=== PATIENT | female | born 1940 | race Caucasian/White ===

== ENCOUNTER 2017-02-01 13:37 | Emergency (ER) | payer MEDICARE, OTHER ==
[2017-02-01] MEDS ORDERED: CYCLOBENZAPRINE HCL 10 MG TABLET PO ONE (14:05)
[2017-02-01] MEDS ORDERED: ACETAMINOPHEN 325 MG TABLET PO ONE (14:05)
[2017-02-01] MEDS ORDERED: ACETAMINOPHEN 325 MG TABLET ONE (14:09)
[2017-02-01] MEDS ORDERED: CYCLOBENZAPRINE HCL 10 MG TABLET ONE (14:09)
[2017-02-01 14:11] VITALS: BP 129/88
--- NOTE | 2017-02-01 14:16 | ERNOTE ---
Back Pain ER HPI Time Seen by Provider: 02/01/17 13:48 Source: patient Exam Limitations: no limitations Immunizations: IMMUNIZATION HX Immunizations Up to Date Yes History of Influenza Vaccine Yes Hx Pneumococcal Vaccination Yes Allergies/Adverse Reactions: Allergies codeine [Codeine] Allergy (Intermediate, Verified 04/21/16 15:59) Itching penicillin G Allergy (Intermediate, Verified 04/21/16 15:59) Hives Home Medications: HOME MEDICATIONS Alendronate Sodium [Fosamax] 70 mg PO Q7D #0 04/24/14 [Last Taken Unknown] Amitriptyline HCl [Elavil] 20 mg PO HS #0 04/24/14 [Last Taken Unknown] Aspirin [Aspirin Chewable] 81 mg PO DAILY #0 04/24/14 [Last Taken Unknown] Calcium Carbonate/Vitamin D3 [Calcarb 600 With Vitamin D] 1 tab PO BIDWM #0 tablet 04/24/14 [Last Taken Unknown] Cinnamon Bark/Chromium Picolin [Cinnamon Plus Chromium Capsule] 1 each PO BID # 0 04/24/14 [Last Taken Unknown] Gabapentin [Neurontin] 600 mg PO ACHS #0 04/24/14 [Last Taken Unknown] Hydrochlorothiazide 50 mg PO DAILY #0 04/24/14 [Last Taken Unknown] Levothyroxine Sodium [Synthroid] 150 mcg PO DAILY #0 04/24/14 [Last Taken Unknown] Losartan Potassium [Cozaar] 100 mg PO DAILY #0 04/24/14 [Last Taken Unknown] Magnesium Oxide [Magnesium] 400 mg PO BID #0 04/24/14 [Last Taken Unknown] Potassium Chloride [K-Dur] 20 meq PO DAILY #0 04/24/14 [Last Taken Unknown] Simvastatin [Zocor] 10 mg PO HS #0 04/24/14 [Last Taken Unknown] Vitamin E Acetate [Vitamin E] 800 unit PO DAILY #0 04/24/14 [Last Taken Unknown ] metFORMIN HCL [Glucophage] 850 mg PO TID #0 04/24/14 [Last Taken Unknown] Naproxen Sodium [Aleve] 220 mg PO BID 04/21/16 [Last Taken Unknown] Sulfamethoxazole/Trimethoprim [Bactrim Ds] 1 tab PO BID #20 tab 04/21/16 [Last Taken Unknown] Cyclobenzaprine HCl [Flexeril] 10 mg PO TID PRN #30 tab 02/01/17 [Last Taken Unknown] Narrative: Patient complaints about pain in the back of her right thigh for about four days now, occasional numbness in that leg as well. When asked about back pain she admits to back pain for unkown duration, denies any recent falls or injuries. She had a fall a few years ago and had right sided sciatica after that for a while. She saw her PCP three days ago for skin infection (possibly infected bites?) was started on an antibiotic, did not address the leg pain at that time. Date (Duration): 01/28/17 Review of Systems - Review of Systems Constitutional: Present: See HPI, malaise. Absent: fever ENT: Absent: sore throat Respiratory: Absent: shortness of breath Cardiology: Absent: chest pain Gastrointestinal/Abdominal: Absent: nausea, vomiting, abdominal pain Genitourinary: Present: no symptoms reported Musculoskeletal: Present: See HPI Neurological: Present: See HPI, weakness - no focal, numbness - Patient's Past Medical History Patient History - Medical: Diabetes Type 2, Hypothyroidism Patient History - Cardiac/Respiratory: CHF, Hypertension, Hyperlipidemia Patient History - Cancer: No Hx of Cancer Patient History - Surgical Procedures: Cholecystectomy, Total Knee Replacement, Other, Orthopedic Patient History - Other: None - Family History Father Family History - Medical: , History Unknown Mother Family History - Medical: Family History - Cardiac/Respiratory: Hypertension - Social History Living Situations: home Abuse History: No History of abuse Psych History: No pertinent hx Smoking Status: Never smoker Have you smoked in the past 12 months: No Do you dip or chew tobacco: No Patient requests Smoking Cessation Consult: No Initiate information on Smoking Cessation: No Alcohol Use: none Drug Use: none - Immunizations Immunizations Up to Date: Yes Hx Pneumococcal Vaccination: Yes History of Influenza Vaccine: Yes Physical Exam - Physical Exam General Appearance: Present: wd/wn, alert, no apparent distress, obese Respiratory: Present: no respiratory distress, normal breath sounds, lungs clear Cardiovascular/Chest: Present: regular rate, rhythm, no murmur Back Exam: Present: normal inspection, other - tender to lower lumbar spine and paraspinal Extremity Exam: Present: normal inspection, non-tender, other - pain on right straight leg raise Neurological Exam: Present: alert, oriented, normal mood/affect, no motor/ sensory deficits Skin Exam: Present: normal color, warm/dry ED Progress - Vital Signs Patient's Vital Signs:: I have reviewed the patient's vital signs. Vital Signs: Vital Signs 02/01/17 13:48 Temperature 36.5 C Pulse Rate 98 Respiratory 18 Rate Blood Pressure 129/88 O2 Sat by Pulse 94 Oximetry Departure Clinical Impression: Sciatica of right side - Departure Disposition: Home self-care Condition: Good Instructions: Sciatica, [id number] Additional Instructions: take tylenol(650mg) every four hours in addition to the aleve you are taking twice a day call Janis tomorrow for follow up Referrals: Janis Mccall, BEHAVIOR ANALYST [Primary Care Provider] - Prescriptions: Cyclobenzaprine HCl [Flexeril] 10 mg PO TID PRN #30 tab PRN Reason: MUSCLE SPASMS
--- OUTSIDE RECORDS SUMMARY | 2017-02-01 14:16 | XMS REPORT | Continuity of Care Document ---
:1940 Author Organization [facility] ([facility]) Address [address] [place] [address] Phone [phone] Care Team Providers Name Role Phone Janis Mccall Primary Care Provider [phone] Source Comments This disclosure is being made pursuant to the Care Everywhere program, applicable federal and state laws, and may not contain all informaitonavailable regarding this patient.[facility] ([facility]) Active Allergies and Adverse Reactions Allergen Noted Date Severity Reactions Comments Codeine 03/07/2012 Rash Penicillins 03/07/2012 Rash Current Medications Prescription Sig. Disp. Refills Start Date End Date Status [id number] Take 400 mg by mouth Active PO 2 times daily. METFORMIN HCL (METFORMIN Take 850 mg by mouth Active PO) 3 times daily. potassium chloride 10 Take 20 mEq by mouth Active mEq XR capsule daily. Indications: HYPOKALEMIA PREVENTION levothyroxine 150 mcg Take 150 mcg by mouth Active tablet daily. Indications: HYPOTHYROIDISM simvastatin 10 mg tablet Take 10 mg by mouth Active every evening. Indications: ARTERIOSCLEROTIC VASCULAR DISEASE gabapentin 300 mg tablet Take 600 mg by mouth Active 4 times daily. Indications: NEUROPATHIC PAIN vitamin E 400 unit Take 400 Units by Active capsule mouth daily. Indications: VITAMIN E DEFICIENCY CALCIUM Take by mouth. Active CARBONATE/VITAMIN D3 (CALCIUM + D PO) hydrochlorothiazide 25 Take 50 mg by mouth Active mg tablet daily. amitriptyline 10 mg Take 10 mg by mouth Active tablet at bedtime. aspirin 81 mg EC tablet Take 81 mg by mouth Active daily. Active Problems Problem Noted Date Status post revision of total knee replacement 06/18/2014 Surgical aftercare, musculoskeletal system 06/18/2014 Postoperative anemia due to acute blood loss 04/20/2014 High body mass index 04/19/2014 Morbid obesity with BMI of 45.0-49.9, adult 04/19/2014 Pre-op evaluation 04/12/2014 Diabetes mellitus type 2, controlled 03/02/2014 HTN (hypertension) 03/02/2014 Hypothyroidism 03/02/2014 Diabetic neuropathy, type II diabetes mellitus 03/02/2014 Numbness and tingling in left hand 03/07/2012 Resolved Problems Problem Noted Date Resolved Date History of knee replacement, total 06/06/2014 06/18/2014 Left knee pain 03/02/2014 06/18/2014 Mechanical loosening of internal left knee prosthetic joint 03/02/20142013 Transient ischemic attack 03/07/2012 03/08/2012 Most Recent Encounters Date Type Specialty Providers Description 11/26/2016 Hospital Encounter Radiology Luis Alfredo Agosto, Dx: Aftercare following MD surgery of the musculoskeletal system 11/26/2016 Office Visit Orthopaedic Juan David Smith Dx: Aftercare following MD surgery of the musculoskeletal system (Primary Dx) Immunizations Name Dates Previously Given Next Due Influenza, unspecified 08/19/2011 Pneumococcal, unspecified 08/19/2011 Social History Tobacco Use Types Packs/Day Years Used Date Never Smoker Smokeless Tobacco: Never Used Tobacco Cessation:Counseling Given: Yes Comments: Alcohol Use Drinks/Week oz/Week Comments No Last Filed Vital Signs Vital Sign Reading Time Taken Blood Pressure 100/57 06/06/2014 9:36 AM CDT Pulse 127 04/21/2014 4:00 PM CDT Temperature 36.4 C (97.5 F) 04/21/2014 4:00 PM CDT Respiratory Rate 16 04/21/2014 4:00 PM CDT Height 1.676 m (5' 5.98") 11/26/2016 11:04 AM CDT Weight 141.8 kg (312 lb 9.8 oz) 11/26/2016 11:04 AM CDT Body Mass Index 50.48 11/26/2016 11:04 AM CDT Oxygen Saturation 94% 04/21/2014 4:00 PM CDT Plan of Care Date Type Specialty Providers Description 06/03/2017 Appointment Orthopaedic Juan David Smith MD Chief Comp: Patient [address] [place] [address] [phone] (Fax) Health Maintenance Due Date Last Done Comments Hepatitis B Vaccine (1 of 3 - Primary 1940 Series) Tdap Vaccine 1953 DIABETIC: Microalbumin 1960 Td Vaccine 1960 Mammogram 1982 Colonoscopy 08/21/1992 Zoster Vaccine 2002 Osteoporosis Screening (DXA Bone Density) 2007 Pneumococcal Vaccine (1 of 2 - PCV13) 2007 DIABETIC: Cholesterol 03/08/2013 03/08/2012 Diabetic: Hdl 03/08/2013 03/08/2012 Diabetic: Ldl 03/08/2013 03/08/2012 DIABETIC: Triglycerides 03/08/2013 03/08/2012 DIABETIC: Foot Exam 02/14/2014 DIABETIC: Retinal Eye Exam 02/14/2014 DIABETIC: Hemoglobin A1C 08/17/2014 02/14/2014, 03/08/2012 Influenza Vaccine: Seasonal (Season Ended) 2017 08/19/2011 Results from Last 3 Months LEFT KNEE AP, LATERAL& MERCHANT (11/26/2016 10:56 AM) Impressions Findings / Impression: Postsurgical changes of left constrained total knee arthroplasty in grossly stable alignment without interval hardware complication. Previously noted posterior lateral migration of the tibial stem is unchanged when compared to prior study. Heterotopic ossification noted posterior to the femur. Neutral patellar tracking bilaterally.. Narrative Procedure: LEFT KNEE AP, LATERAL & MERCHANT Clinical Indication: Left total knee arthroplasty Comparison: 06/02/2016 Procedure Note Adin, Incoming Imaging Results - ThuNov 26, 2016 5:07 PM CDT Procedure: LEFT KNEE AP, LATERAL & MERCHANT Clinical Indication: Left total knee arthroplasty Comparison: 06/02/2016 IMPRESSION Findings / Impression: Postsurgical changes of left constrained total knee arthroplasty in grossly stable alignment without interval hardware complication. Previously noted posterior lateral migration of the tibial stem is unchanged when compared to prior study. Heterotopic ossification noted posterior to the femur. Neutral patellar tracking bilaterally..
== END 2017-02-01 14:15 | disposition home or self-care (01) ==
LOC: ER 13:37
DX: M54.31 Sciatica, right side (principal)

== ENCOUNTER 2019-06-09 12:22 | Observation (INO) ==
[2019-06-09 12:41] LABS: Hematocrit 38.5 % (37.0-47.0); Hemoglobin 12.4 gm/dL (12.5-16.0); Mean Cell Volume 101.3 fl (78-100); Mean Corpuscular Hemoglobin 32.6 pg (27-31); Mean Corpuscular Hgb Conc 32.2 g/dl (32-36); Mean Platelet Volume 10.9 fl (8-12.5); Neutrophil # 5.2 K/mm3 (1.3-6.0); Neutrophil % 68.5 % (42-75.0); Platelet Count 171 K/mm3 (150-450); Red Cell Distribution Width 14.5 % (11.5-14.0); White Blood Count 7.6 K/mm3 (4.0-10.5)
--- NOTE | 2019-06-09 12:43 | ERNOTE ---
Trauma/Assault HPI - General Stated Complaint: fall Time Seen by Provider: 06/09/19 12:22 Source: patient Exam Limitations: no limitations - Immun/Allergies/Home Medications Immunizations: IMMUNIZATION HX Immunizations Up to Date Yes History of Influenza Vaccine Yes Hx Pneumococcal Vaccination Yes Allergies/Adverse Reactions: Allergies penicillin G Allergy (Mild, Verified 06/09/19 12:34) Hives codeine [Codeine] Adverse Reaction (Mild, Verified 06/09/19 12:34) Itching Home Medications: HOME MEDICATIONS Alendronate Sodium [Fosamax] 70 mg PO Q7D #0 04/24/14 [Last Taken 02/16/17] Calcium Carbonate/Vitamin D3 [Calcarb 600 With Vitamin D] 1 tab PO BIDWM #0 tab 04/24/14 [Last Taken 02/18/17] Potassium Chloride [K-Dur] 20 meq PO DAILY #0 04/24/14 [Last Taken 02/18/17] Simvastatin [Zocor] 10 mg PO HS #0 04/24/14 [Last Taken 02/18/17] metFORMIN HCL [Glucophage] 850 mg PO TID #0 04/24/14 [Last Taken 02/18/17] Naproxen Sodium [Aleve] 440 mg PO BID 04/21/16 [Last Taken 02/19/17] Vitamin E Acetate [Vitamin E] 1,200 unit PO DAILY 02/19/17 [Last Taken 02/18/17] B complex with [id number]-Yy tab PO 04/30/18 [Last Taken Unknown] amitriptyline 10 mg tablet 20 mg PO HS tab 04/30/18 [Last Taken Unknown] atenolol 50 mg tablet 50 mg PO DAILY 04/30/18 [Last Taken Unknown] gabapentin 300 mg capsule 600 mg PO QID cap 04/30/18 [Last Taken Unknown] hydrochlorothiazide 50 mg tablet 50 mg PO DAILY 04/30/18 [Last Taken Unknown] losartan 100 mg tablet 100 mg PO DAILY 04/30/18 [Last Taken Unknown] warfarin 2 mg tablet 2 mg PO DAILY 04/30/18 [Last Taken Unknown] Nitrofurantoin/Nitrofuran Mac [Macrobid] 100 mg PO Q12H #10 cap 06/09/19 [Last Taken Unknown] - History of Present Illness Narrative: Patient states that she was coming back from taking her to a doctors appointment and as she was opening the front door she fainted, fell back and hit her head on the sidewalk. She complains mainly of pain in the back of her head, doesn't remember any symptoms prior to passing out, denies current chest pain, no shortness of breath, states that she felt dizzy when sitting up for EMS Location Occurred: Reports: home Pain Location: Reports: head Method of Injury: Reports: fall Severity: moderate Modifying Factors - (Worsens): Reports: movement Associated Symptoms - Trauma: Reports: headache, dizziness. Denies: confusion, vision changes, chest pain, shortness of breath, nausea, vomiting Review of Systems - Review of Systems Constitutional: Absent: recent illness, fever EYE: Absent: vision changes ENT: Absent: nose congestion, sore throat Respiratory: Absent: shortness of breath Cardiology: Absent: chest pain Gastrointestinal/Abdominal: Absent: nausea Genitourinary: Present: no symptoms reported Musculoskeletal: Absent: back pain Neurological: Present: headache, dizziness/light-headedness Medical History (Last Reviewed 06/09/19 @ 13:14 by Vikki Cai MD) Atrial fibrillation Uses hearing aid Acquired hammer toe Bunion Diabetes mellitus, type II Onset Date: ~1989 Hyperlipidemia Hypertension Hypothyroidism Nail disease Onset Date: ~09/04/12 Neuropathy Onset Date: Unknown Plantar fascial fibromatosis Onset Date: ~09/09/12 Xerosis of skin Onset Date: ~09/04/12 feet Surgical History: Surgical History (Last Reviewed 06/09/19 @ 13:14 by Vikki Cai MD) History of Fatty Tumor Removal Onset Date: ~1980 History of YAG laser capsulotomy of lens Onset Date: ~03/2005 Right 04/2006 Left History of adenoidectomy Onset Date: Unknown History of carpal tunnel release Onset Date: ~1994 Right History of cataract Onset Date: ~2000 Right 06/2001 Left 07/2001 History of cholecystectomy Onset Date: ~1982 History of colonoscopy Onset Date: ~01/14/12 WNL-Dr. Neri History of flexible sigmoidoscopy Onset Date: ~1998 Meyer-infrared coagulation of hemorrhoids done 04/1999 and 07/1999 History of knee replacement Onset Date: ~2003 Right 12/2003 Dr. Jones Left 2004 Dr. Chacon History of tonsillectomy Onset Date: Unknown Family History: Family History (Last Reviewed 06/09/19 @ 14:49 by Marshall Garcia RN) Brother Alive and well Sister Alive and well Father , age 89-natural causes Paralysis Mother , age 82 Cancer Esophageal CA Sister , age 63 Epilepsy Social History: (Last Reviewed 06/09/19 @ 14:49 by Marshall Garcia RN) Social History: Marital status: household members: spouse current occupational status: retired Highest education level completed: high school graduate Service: No Tobacco: Smoking Status: Never smoker Alcohol: alcohol intake: never Substance Use: substance use type: does not use Dietary Habits: caffeine: Yes Detailed Trauma Exam Best Eye Response ([place]): (4) open spontaneously Best Verbal Response (Gabriel): (5) oriented Best Motor Response (Gabriel): (6) obeys commands [place] Total: 15 General Appearance: Present: alert, no acute distress, anxious Head Injury: Present: tenderness - occipital. 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 inspection Chest/Respiratory Exam: Present: nml inspection, chest non-tender, breath sounds nml Cardiovascular Exam: Present: regular rate, rhythm, no murmur Back Exam: Present: normal inspection, no CVA tenderness, no vertebral tenderness Abdominal Exam: Present: soft, non-tender, no distention Skin Exam: Present: normal color, warm/dry RU Extremity: Present: normal inspection, normal range of motion, non-tender, no edema RHONDA Extremity: Present: normal inspection, normal range of motion, non-tender, no edema RL Extremity: Present: normal inspection, normal range of motion, non-tender, no edema LL Extremity: Present: normal inspection, normal range of motion, non-tender, no edema - C-Spine cleared by: Neg C-spine CT & exam - Long Board: Back visualized Progress - Results and Orders Patient's Lab Results:: I have reviewed the patient's lab results. - Vital Signs Patient's Vital Signs:: I have reviewed the patient's vital signs. Vital Signs: Vital Signs 06/09/19 12:23 Temperature 36.3 C Pulse Rate 69 Respiratory Rate 16 Blood Pressure 157/56 H O2 Sat by Pulse Oximetry 96 - EKG EKG #1 EKG: atrial fibrillation, nonspecific ST T wave changes EKG read: Interp. by me - X-Ray X-Ray #1 X-Ray: chest - hypoventilatory changes, cardiomegaly, venous congestion Interpretation: Reviewed by me - CT/Ultrasound CT/Ultrasound Narrative: CT head: IMPRESSION: 1. No acute intracranial hemorrhage or mass effect. 2. Right occipital region scalp hematoma. 3. Trace amount of fluid within the right maxillary sinus. This is most likely incidental sinus disease, but correlate clinically for right facial bone injury. 4. Additional comments as above. CT C-spine: IMPRESSION: 1. No evidence of acute cervical spine fracture. 2. Evaluation is somewhat limited in regards to the lower cervical spine levels due to patient's body habitus as discussed above. 3. Multilevel cervical spine degenerative spondyloarthropathy as above. 4. Incidental right thyroid lobe nodule. Consider follow-up by thyroid ultrasound on a routine basis. - Progress/Reassessment Chief Complaint: Fall Progress Note-Subjective: 06/09/19 12:30 when sitting up in bed patient complains of dizziness and the room spinning, slight blood pressure drop, nystagmus to the left 06/09/19 14:[address] results, patient still has headache and feel intermittently dizzy 06/09/19 15:07 discussed test results with patient, still has headache, dizzy with movement, discussed possible admission for syncope and concussion, patient would like to go home as she feels she needs to take care of her 06/09/19 15:20 patient tried to get dressed, very difficult to get around, dizzy and weak, would like to get admitted for obs now 06/09/19 15:25 discussed with анна Amador to admit for obs Departure Clinical Impression: Syncope and collapse Concussion Qualifiers: Encounter type: initial encounter Loss of consciousness presence/duration: with LOC of unspecified duration Qualified Code(s): S06.0X9A - Concussion with loss of consciousness of unspecified duration, initial encounter UTI (urinary tract infection) Qualifiers: Urinary tract infection type: acute cystitis Hematuria presence: without hematuria Qualified Code(s): N30.00 - Acute cystitis without hematuria - Departure Disposition: Home self-care Condition: Stable Instructions: Concussion, Adult, [id number], Urinary Tract Infection, Adult, [id number], Syncope, [id number] Additional Instructions: take all your medications as prescribed move around slowly take tylenol as needed for pain Referrals: Fany Waldron DO [Primary Care Provider] - Prescriptions: Nitrofurantoin/Nitrofuran Mac [Macrobid] 100 mg PO Q12H #10 cap Transmission Status: Pending to [facility], [place], [place] Critical Care Time - Critical Care Critical Time Spent:: No
[2019-06-09 12:54] LABS: Prothrombin Time (Patient) 31.5 Seconds (9.1-10.7)
[2019-06-09 12:58] LABS: INR 3.33 INR (0.92-1.08)
[2019-06-09 13:00] LABS: ALT 8 U/L (19-67); AST 20 U/L (0-48); Albumin * 3.8 gm/dl (3.4-5.0); Alkaline Phosphatase * 88 U/L (50-170); Anion Gap 13.7 mmol/L (6.8-13.8); BUN/Creatinine Ratio 19.3 (9.0-21.6); Bilirubin, Total 0.6 mg/dL (0.0-1.1); Blood Urea Nitrogen 23 mg/dL (3-23); Ca. Corrected For Albumin 8.7 mg/dL (8.4-10.2); Calcium * 8.9 mg/dL (7.9-10.9); Carbon Dioxide 28.6 mmol/L (24-32.6); Chloride 105 mmol/L (97-106); Glucose * 105 mg/dL (70-110); Potassium 4.3 mmol/L (3.4-4.6); Sodium 143 mmol/L (132-142); Total Protein 7.1 gm/dL (6.2-8.2)
[2019-06-09] MEDS ORDERED: ACETAMINOPHEN 325 MG TABLET PO ONE (14:00)
[2019-06-09 14:19] LABS: Urine Bilirubin Negative (NEGATIVE); Urine Blood Negative /ul (NEGATIVE); Urine Ketone Negative (NEGATIVE); Urine Nitrite Negative (NEGATIVE); Urine Protein Negative (NEGATIVE); Urine Urobilinogen Normal (NORMAL)
[2019-06-09 14:30] LABS: Urine Appearance Slightly Cloudy (CLEAR); Urine Bacteria 3+; Urine Color Pale Yellow; Urine Hyaline Cast 0-5 /LPF; Urine RBC 0-5 /hpf (0-5)
[2019-06-09 14:31] LABS: Cocaine Ur Negative (NEGATIVE); Urine Barbiturate Negative (NEGATIVE); Urine Benzodiazepines Negative (NEGATIVE); Urine Opiates Negative (NEGATIVE); Urine PCP Negative (NEGATIVE); Urine THC Negative (NEGATIVE)
[2019-06-09] MEDS ORDERED: FLU VACC QS2019-20(6MOS UP)/PF 60 MCG/0.5 ML SYRINGE IM ONE (18:00)
--- NOTE | 2019-06-09 19:37 | HP ---
Chief Complaint - Chief Complaint Date of Service: 06/09/19 Time of Service: 19:27 Chief Complaint: Headache secondary to a fall and syncope History of Present Illness: Luly tadeo is a 78-year-old morbidly obese female who had been in her usual state of health at home. She did forget to take her medicines this morning. She was standing at a door and suddenly felt that she was passing out and then fell. She remembers that feeling and the fall and hitting her head. She remembers the full details of the event. She is not sure that she was unconscious at any time. She does remember blacking out just that she was hitting the floor. She hit the back of her head and has a large hematoma but no repair is required. She is admitted for a closed head injury and presumed concussion syndrome through the emergency room. She has a chronic history of atrial fib and her monitor has been showing atrial fib flutter with a controlled ventricular response rate in the 80s. Blood pressures been normal. Medical History (Last Reviewed 06/09/19 @ 16:57 by Carrie Almaguer RN) Atrial fibrillation Uses hearing aid Acquired hammer toe Bunion Diabetes mellitus, type II Onset Date: ~1989 Hyperlipidemia Hypertension Hypothyroidism Nail disease Onset Date: ~09/04/12 Neuropathy Onset Date: Unknown Plantar fascial fibromatosis Onset Date: ~09/09/12 Xerosis of skin Onset Date: ~09/04/12 feet Surgical History: Surgical History (Last Reviewed 06/09/19 @ 16:57 by Carrie Almaguer RN) History of Fatty Tumor Removal Onset Date: ~1980 History of YAG laser capsulotomy of lens Onset Date: ~03/2005 Right 04/2006 Left History of adenoidectomy Onset Date: Unknown History of carpal tunnel release Onset Date: ~1994 Right History of cataract Onset Date: ~2000 Right 06/2001 Left 07/2001 History of cholecystectomy Onset Date: ~1982 History of colonoscopy Onset Date: ~01/14/12 AILY[facility]-Dr. Neri History of flexible sigmoidoscopy Onset Date: ~1998 Meyer-infrared coagulation of hemorrhoids done 04/1999 and 07/1999 History of knee replacement Onset Date: ~2003 Right 12/2003 Dr. Jones Left 2004 Dr. Chacon History of tonsillectomy Onset Date: Unknown Family History: Family History (Last Reviewed 06/09/19 @ 16:57 by Carrie Almaguer RN) Brother Alive and well Sister Alive and well Father , age 89-natural causes Paralysis Mother , age 82 Cancer Esophageal CA Sister , age 63 Epilepsy Social History: (Last Reviewed 06/09/19 @ 16:57 by Carrie Almaguer RN) Social History: Marital status: household members: spouse current occupational status: retired Highest education level completed: high school graduate Service: No Tobacco: Smoking Status: Never smoker Alcohol: alcohol intake: never Substance Use: substance use type: does not use Dietary Habits: caffeine: Yes Review Of Systems (GEN) - Review of Systems EENTM: Present: Throat Pain Respiratory: Present: No Symptoms Reported Cardiac: Present: No Symptoms Reported Abdominal: Present: No Symptoms Reported Genitourinary: Present: No Symptoms Reported Musculoskeletal: Present: No Symptoms Reported Neurological: Present: Headache Skin: Present: No Symptoms Reported Endocrine: Present: No Symptoms Reported Immunizations: IMMUNIZATION HX Immunizations Up to Date Yes History of Influenza Vaccine Yes Hx Pneumococcal Vaccination Yes Allergies/Adverse Reactions: Allergies Allergy/AdvReac Type Severity Reaction Status Date / Time penicillin G Allergy Mild Hives Verified 06/09/19 16:58 codeine [Codeine] AdvReac Mild Itching Verified 06/09/19 16:58 Home Medications: HOME MEDICATIONS Potassium Chloride [K-Dur] 20 meq PO DAILY #0 04/24/14 [Last Taken 02/18/17] Simvastatin [Zocor] 10 mg PO HS #0 04/24/14 [Last Taken 02/18/17] metFORMIN HCL [Glucophage] 850 mg PO TID #0 04/24/14 [Last Taken 02/18/17] Naproxen Sodium [Aleve] 440 mg PO HS 04/21/16 [Last Taken 02/19/17] Vitamin E Acetate [Vitamin E] 800 unit PO DAILY 02/19/17 [Last Taken 02/18/17] amitriptyline 10 mg tablet 20 mg PO HS tab 04/30/18 [Last Taken Unknown] gabapentin 300 mg capsule 600 mg PO QID cap 04/30/18 [Last Taken Unknown] hydrochlorothiazide 50 mg tablet 50 mg PO DAILY 04/30/18 [Last Taken Unknown] losartan 100 mg tablet 100 mg PO DAILY 04/30/18 [Last Taken Unknown] warfarin 2 mg tablet 8 mg PO SUTUTHSA 04/30/18 [Last Taken Unknown] Calcium Carbonate/Vitamin D3 [Calcarb 600 With Vitamin D] 1 tab PO BID 06/09/19 [Last Taken Unknown] Levothyroxine Sodium [Levo-T] 200 mcg PO DAILY 06/09/19 [Last Taken 06/09/19 07:00] Magnesium Oxide [Mag-Ox 400] 400 mg PO DAILY 06/09/19 [Last Taken Unknown] Sertraline HCl [Zoloft] 100 mg PO DAILY 06/09/19 [Last Taken Unknown] Warfarin Sodium [Coumadin] 6 mg PO MOWEFR 06/09/19 [Last Taken Unknown] Exam - Exam Vital Signs: Vital Signs - Last Taken Temp 36.7 C 06/09/19 19:17 Pulse 77 06/09/19 19:17 Resp 18 06/09/19 19:17 BP 143/73 06/09/19 19:17 Pulse Ox 94 06/09/19 19:17 Constitutional: Present: Alert, Oriented x3, Cooperative, Well developed, Well nourished, Mild distress ENT Exam: Present: normal ENT inspection, hearing grossly normal, pharynx normal, TMs normal, other - Occipital hematoma Eye Exam: bilateral eye: normal inspection, PERRL, EOMI Neck: Present: non-tender, supple, normal inspection, limited range of motion Back Exam: Present: normal inspection, no CVA tenderness, no vertebral tenderness Breasts: Present: Exam deferred Respiratory: Present: chest non-tender, lungs clear, normal breath sounds, no respiratory distress, no accessory muscle use Cardiovascular/Chest: Present: normal peripheral pulses, regular rate, rhythm, no chest tenderness, no edema, no gallop, no JVD, no murmur, no rub Peripheral Pulses: carotid (R): 2+, carotid (L): 2+, radial (R): 2+, radial (L): 2+ Abdomen: Present: Normal bowel sounds, soft, nontender, nondistended, no rebound tenderness, no hepatospenomegaly, no masses, obese /Rectal: Present: Exam deferred Extremity: Present: normal range of motion - With some 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 Skin Exam: Present: normal color, warm/dry, no cyanosis Lymphatic: Present: no adenopathy Neurologic: Present: business support associate II-XII nml as tested, normal cerebellar test, no motor/sensory deficits, alert, normal mood/affect, oriented x 3, abnormal business support associate II-XII, abnormal gait. Absent: motor weakness, sensory deficit, depressed affect, disoriented x 3, dizzy/light-headedness Appearance: Present: appropriate appearance, appropriate insight, neat, no memory impairment, denies illness Eye contact: Present: cooperative, good eye contact, normal speech Thoughts: Present: normal thought pattern, no apparent hallucination Diagnostic Studies: Abnormal Lab Results 06/09/19 06/09/19 06/09/19 Range/Units 12:39 12:39 12:39 RBC 3.80 L (4.2-5.4) M/mm3 Hgb 12.4 L (12.5-16.0) gm/dL MCV 101.3 H (78-100) fl MCH 32.6 H (27-31) pg RDW 14.5 H (11.5-14.0) % Lymphocytes % 16.1 L (20-51) % Monocytes % 10.1 H (0.0-9) % Eosinophils % 4.5 H (0.0-3.0) % Lymphocytes # 1.23 L (1.5-3.5) k/mm3 PT 31.5 H (9.1-10.7) Seconds INR (Anticoag Therapy) 3.33 H (0.92-1.08) INR Sodium 143 H (132-142) mmol/L Plasma Sodium 143 H (130-142) mmol/L Est GFR (Non-Af Amer) 47 L (60-130) mL/min ALT 8 L (19-67) U/L Ur Leukocyte Esterase (NEGATIVE) /ul Urine WBC (0-5) /hpf Ur Epithelial Cells (0-5) /hpf Urine Bacteria (NONE) Hyaline Casts (NONE) /LPF 06/09/19 Range/Units 14:14 RBC (4.2-5.4) M/mm3 Hgb (12.5-16.0) gm/dL MCV (78-100) fl MCH (27-31) pg RDW (11.5-14.0) % Lymphocytes % (20-51) % Monocytes % (0.0-9) % Eosinophils % (0.0-3.0) % Lymphocytes # (1.5-3.5) k/mm3 PT (9.1-10.7) Seconds INR (Anticoag Therapy) (0.92-1.08) INR Sodium (132-142) mmol/L Plasma Sodium (130-142) mmol/L Est GFR (Non-Af Amer) (60-130) mL/min ALT (19-67) U/L Ur Leukocyte Esterase 25 H (NEGATIVE) /ul Urine WBC 5-10 H (0-5) /hpf Ur Epithelial Cells 5-10 H (0-5) /hpf Urine Bacteria 3+ H (NONE) Hyaline Casts 0-5 H (NONE) /LPF Laboratory Results WBC 7.6 K/mm3 (4.0-10.5) 06/09/19 12:39 RBC 3.80 M/mm3 (4.2-5.4) L 06/09/19 12:39 Hgb 12.4 gm/dL (12.5-16.0) L 06/09/19 12:39 Hct 38.5 % (37.0-47.0) 06/09/19 12:39 MCV 101.3 fl (78-100) H 06/09/19 12:39 MCH 32.6 pg (27-31) H 06/09/19 12:39 MCHC 32.2 g/dl (32-36) 06/09/19 12:39 RDW 14.5 % (11.5-14.0) H 06/09/19 12:39 Plt Count 171 K/mm3 (150-450) 06/09/19 12:39 MPV 10.9 fl (8-12.5) 06/09/19 12:39 Immature Gran % (Auto) 0.30 % (0.001-0.429) 06/09/19 12:39 Immature Gran # (Auto) 0.02 K/mm3 (0.000-0.0310) 06/09/19 12:39 Neutrophils % 68.5 % (42-75.0) 06/09/19 12:39 Lymphocytes % 16.1 % (20-51) L 06/09/19 12:39 Monocytes % 10.1 % (0.0-9) H 06/09/19 12:39 Eosinophils % 4.5 % (0.0-3.0) H 06/09/19 12:39 Basophils % 0.5 % (0.0-1.0) 06/09/19 12:39 Nucleated RBC % 0.0 k/mm3 (0-1) 06/09/19 12:39 Neutrophils # 5.2 K/mm3 (1.3-6.0) 06/09/19 12:39 Lymphocytes # 1.23 k/mm3 (1.5-3.5) L 06/09/19 12:39 Monocytes # 0.8 k/mm3 (0.0-1.0) 06/09/19 12:39 Eosinophils # 0.3 k/mm3 (0.0-0.7) 06/09/19 12:39 Absolute Basophils 0.0 k/mm3 (0.0-0.1) 06/09/19 12:39 PT 31.5 Seconds (9.1-10.7) H 06/09/19 12:39 INR (Anticoag Therapy) 3.33 INR (0.92-1.08) H 06/09/19 12:39 Sodium 143 mmol/L (132-142) H 06/09/19 12:39 Plasma Sodium 143 mmol/L (130-142) H 06/09/19 12:39 Potassium 4.3 mmol/L (3.4-4.6) 06/09/19 12:39 Chloride 105 mmol/L (97-106) 06/09/19 12:39 Carbon Dioxide 28.6 mmol/L (24-32.6) 06/09/19 12:39 Anion Gap 13.7 mmol/L (6.8-13.8) 06/09/19 12:39 BUN 23 mg/dL (3-23) 06/09/19 12:39 Creatinine 1.19 mg/dL (0.4-1.4) 06/09/19 12:39 Est GFR (Non-Af Amer) 47 mL/min (60-130) L 06/09/19 12:39 BUN/Creatinine Ratio 19.3 (9.0-21.6) 06/09/19 12:39 Random Glucose 105 mg/dL (70-110) 06/09/19 12:39 Calcium 8.9 mg/dL (7.9-10.9) 06/09/19 12:39 Calcium Adj for Albumin 8.7 mg/dL (8.4-10.2) 06/09/19 12:39 Total Bilirubin 0.6 mg/dL (0.0-1.1) 06/09/19 12:39 AST 20 U/L (0-48) 06/09/19 12:39 ALT 8 U/L (19-67) L 06/09/19 12:39 Alkaline Phosphatase 88 U/L (50-170) 06/09/19 12:39 Troponin I Less than 0.017 ng/mL (0.00-0.10) 06/09/19 12:43 Total Protein 7.1 gm/dL (6.2-8.2) 06/09/19 12:39 Albumin 3.8 gm/dl (3.4-5.0) 06/09/19 12:39 Urine Color Pale yellow 06/09/19 14:14 Urine Appearance Slightly cloudy (CLEAR) 06/09/19 14:14 Urine pH 6.0 pH (5.0-7.0) 06/09/19 14:14 Ur Specific [place] 1.010 SP.GR. (1.005-1.010) 06/09/19 14:14 Urine Protein Negative mg/dL (NEGATIVE) 06/09/19 14:14 Urine Glucose (UA) Negative mg/dL (NEGATIVE) 06/09/19 14:14 Urine Ketones Negative mg/dL (NEGATIVE) 06/09/19 14:14 Urine Blood Negative /ul (NEGATIVE) 06/09/19 14:14 Urine Nitrate Negative (NEGATIVE) 06/09/19 14:14 Urine Bilirubin Negative mg/dl (NEGATIVE) 06/09/19 14:14 Urine Urobilinogen Normal EU/dl (NORMAL) 06/09/19 14:14 Ur Leukocyte Esterase 25 /ul (NEGATIVE) H 06/09/19 14:14 Urine RBC 0-5 /hpf (0-5) 06/09/19 14:14 Urine WBC 5-10 /hpf (0-5) H 06/09/19 14:14 Ur Epithelial Cells 5-10 /hpf (0-5) H 06/09/19 14:14 Urine Bacteria 3+ (NONE) H 06/09/19 14:14 Hyaline Casts 0-5 /LPF (NONE) H 06/09/19 14:14 Urine Culture Comments Culture to follow 06/09/19 14:14 Urine Opiates Screen Negative (NEGATIVE) 06/09/19 14:14 Barbiturate Screen Negative (NEGATIVE) 06/09/19 14:14 Ur Phencyclidine Scrn Negative (NEGATIVE) 06/09/19 14:14 Urine Amphetamine Negative (NEGATIVE) 06/09/19 14:14 U Benzodiazepines Scrn Negative (NEGATIVE) 06/09/19 14:14 Urine Cocaine Screen Negative (NEGATIVE) 06/09/19 14:14 Urine Marijuana (THC) Negative (NEGATIVE) 06/09/19 14:14 Ethyl Alcohol Less than 3.0 mg/dL (0.0-10.0) 06/09/19 12:39 Assessment/Plan - Narrative Narrative: 1. Continuous cardiac monitoring 2. Physical therapy walk with her tomorrow and evaluate her independence and balance 3. Repeat morning lab with CBC and CMP 4. Tylenol for her headache 5. Anticipate discharge tomorrow. - Assessment/Plan (1) Atrial fibrillation/flutter Problem: Acute (2) Hematoma of scalp Problem: Acute (3) Pain Problem: Acute (4) Syncope and collapse Problem: Acute (5) Concussion Problem: Acute Qualifiers: Encounter type: initial encounter Loss of consciousness presence/duration: with LOC of unspecified duration Qualified Code(s): S06.0X9A - Concussion with loss of consciousness of unspecified duration, initial encounter
[2019-06-09] MEDS ORDERED: WARFARIN SODIUM 2 MG TABLET PO SCH (19:45)
[2019-06-09] MEDS ORDERED: SIMVASTATIN 20 MG TABLET ONE (20:14)
[2019-06-09] MEDS: NAPROXEN SODIUM 220 MG TABLET PO SCH (20:23)
[2019-06-09] MEDS: CALCIUM CARBONATE/VITAMIN D3 1 TAB TABLET PO SCH (20:24)
[2019-06-09] MEDS: AMITRIPTYLINE HCL 10 MG TABLET PO SCH (20:24)
[2019-06-09] MEDS: SIMVASTATIN 10 MG TABLET PO SCH (20:25)
[2019-06-09] MEDS ORDERED: WARFARIN SODIUM 1 MG TABLET ONE (20:59)
[2019-06-09] MEDS ORDERED: GABAPENTIN 300 MG CAPSULE PO SCH (21:00)
[2019-06-09] MEDS ORDERED: WARFARIN SODIUM 4 MG TABLET PO ONE (21:00)
[2019-06-09] MEDS: ACETAMINOPHEN 325 MG TABLET PO PRN (21:03)
[2019-06-10 05:38] LABS: Hematocrit 37.7 % (37.0-47.0); Hemoglobin 12.1 gm/dL (12.5-16.0); Mean Cell Volume 101.1 fl (78-100); Mean Corpuscular Hemoglobin 32.4 pg (27-31); Mean Corpuscular Hgb Conc 32.1 g/dl (32-36); Mean Platelet Volume 10.8 fl (8-12.5); Neutrophil # 3.5 K/mm3 (1.3-6.0); Neutrophil % 56.6 % (42-75.0); Platelet Count 149 K/mm3 (150-450); Red Blood Count 3.73 M/mm3 (4.2-5.4); Red Cell Distribution Width 14.3 % (11.5-14.0); White Blood Count 6.1 K/mm3 (4.0-10.5)
[2019-06-10] MEDS: ACETAMINOPHEN 325 MG TABLET PO PRN (05:47)
[2019-06-10 05:59] LABS: Albumin * 3.2 gm/dl (3.4-5.0); Anion Gap 10.9 mmol/L (6.8-13.8); BUN/Creatinine Ratio 19.8 (9.0-21.6); Bilirubin, Total 0.7 mg/dL (0.0-1.1); Ca. Corrected For Albumin 9.5 mg/dL (8.4-10.2); Calcium * 9.2 mg/dL (7.9-10.9); Carbon Dioxide 29.4 mmol/L (24-32.6); Potassium 4.3 mmol/L (3.4-4.6); Total Protein 6.2 gm/dL (6.2-8.2)
[2019-06-10 06:21] LABS: Prothrombin Time (Patient) 31.6 Seconds (9.1-10.7)
[2019-06-10 06:34] LABS: INR 3.34 INR (0.92-1.08)
[2019-06-10] MEDS: LEVOTHYROXINE SODIUM 100 MCG TABLET PO SCH (07:43)
[2019-06-10] MEDS ORDERED: HYDROCHLOROTHIAZIDE 25 MG TABLET PO SCH (09:00)
[2019-06-10] MEDS: POTASSIUM CHLORIDE 20 MEQ TABLET.SA PO SCH (09:22)
[2019-06-10] MEDS: MAGNESIUM OXIDE 400 MG TABLET PO SCH (09:22)
[2019-06-10] MEDS: LOSARTAN POTASSIUM 50 MG TABLET PO SCH (09:22)
[2019-06-10] MEDS: SERTRALINE HCL 100 MG TABLET PO SCH (09:22)
[2019-06-10] MEDS: CALCIUM CARBONATE/VITAMIN D3 1 TAB TABLET PO SCH ×2 (09:22→20:30)
[2019-06-10] MEDS: GABAPENTIN 600 MG TABLET PO SCH ×2 (09:22→12:31)
[2019-06-10] MEDS: VITAMIN E (DL,TOCOPHERYL ACET) 400 UNITS CAPSULE PO SCH (09:22)
[2019-06-10] MEDS ORDERED: GABAPENTIN 300 MG CAPSULE PO SCH (14:00)
--- NOTE | 2019-06-10 14:13 | PN ---
Subjective - Date and Time Seen Date: 06/10/19 Time: 07:40 Subjective Narrative: had an uneventful night and was feeling much better this morning. She walked to the bathroom with assistance and back to her chair. The mild ataxia and apraxia that she had last night have improved significantly this morning on repeat neurological exam. This afternoon however she has developed lightheadedness and near syncope again. There were no cardiac dysrhythmias on her monitors strips and her blood pressure remained stable. 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 She will need to stay an extra day to have serial three-way blood pressure and pulses documented. In the meantime I will decrease her diuretic and her gabapentin and add a low-dose of metoprolol. I will have nursing encourage fluids. Objective - Review of Systems Generalized/Overall Review: Reports: Weakness EENTM: Reports: No Symptoms Reported Respiratory: Reports: No Symptoms Reported Cardiac: Reports: Other - Lightheadedness and near syncope Abdominal: Reports: No Symptoms Reported Genitourinary Symptoms: Reports: No Symptoms Reported Neurological: Reports: Headache, Weakness Skin: Reports: Bruising - Occipital contusion Endocrine: Reports: No Symptoms Reported - Vitals Vitals: Last Vital Signs Temp 36.6 C 06/10/19 11:00 Pulse 81 06/10/19 11:00 Resp 16 06/10/19 11:00 BP 142/89 06/10/19 13:41 Pulse Ox 96 06/10/19 11:00 - Abnormal Lab Findings Abnormal Lab Findings: Abnormal Lab Results 06/09/19 06/10/19 06/10/19 Range/Units 14:14 05:30 05:30 RBC 3.73 L (4.2-5.4) M/mm3 Hgb 12.1 L (12.5-16.0) gm/dL MCV 101.1 H (78-100) fl MCH 32.4 H (27-31) pg RDW 14.3 H (11.5-14.0) % Plt Count 149 L (150-450) K/mm3 Monocytes % 11.7 H (0.0-9) % Eosinophils % 9.5 H (0.0-3.0) % Lymphocytes # 1.29 L (1.5-3.5) k/mm3 PT (9.1-10.7) Seconds INR (Anticoag Therapy) (0.92-1.08) INR Sodium 145 H (132-142) mmol/L Plasma Sodium 145 H (130-142) mmol/L Chloride 109 H (97-106) mmol/L Est GFR (Non-Af Amer) 54 L (60-130) mL/min ALT 8 L (19-67) U/L Albumin 3.2 L (3.4-5.0) gm/dl Ur Leukocyte Esterase 25 H (NEGATIVE) /ul Urine WBC 5-10 H (0-5) /hpf Ur Epithelial Cells 5-10 H (0-5) /hpf Urine Bacteria 3+ H (NONE) Hyaline Casts 0-5 H (NONE) /LPF 06/10/19 Range/Units 05:30 RBC (4.2-5.4) M/mm3 Hgb (12.5-16.0) gm/dL MCV (78-100) fl MCH (27-31) pg RDW (11.5-14.0) % Plt Count (150-450) K/mm3 Monocytes % (0.0-9) % Eosinophils % (0.0-3.0) % Lymphocytes # (1.5-3.5) k/mm3 PT 31.6 H (9.1-10.7) Seconds INR (Anticoag Therapy) 3.34 H (0.92-1.08) INR Sodium (132-142) mmol/L Plasma Sodium (130-142) mmol/L Chloride (97-106) mmol/L Est GFR (Non-Af Amer) (60-130) mL/min ALT (19-67) U/L Albumin (3.4-5.0) gm/dl Ur Leukocyte Esterase (NEGATIVE) /ul Urine WBC (0-5) /hpf Ur Epithelial Cells (0-5) /hpf Urine Bacteria (NONE) Hyaline Casts (NONE) /LPF - EKG/Xray Findings EKG: NSR EKG read: Reviewed by me - Exam Constitutional: Present: Alert, Oriented x3, Cooperative, Well developed, Well nourished, Mild distress, Elderly, Morbidly obese ENT Exam: Present: normal ENT inspection, hearing grossly normal, pharynx normal Neck: Present: non-tender, full range of motion, supple, normal inspection, trachea midline, limited range of motion Breasts: Present: Exam deferred Respiratory: Present: chest non-tender, lungs clear, normal breath sounds, no respiratory distress, no accessory muscle use Cardiovascular/Chest: Present: normal peripheral pulses, regular rate, rhythm, no chest tenderness, no edema, no gallop, no JVD, no murmur, no rub Abdomen: Present: Normal bowel sounds, soft, nontender, nondistended, no rebound tenderness, no hepatospenomegaly, no masses, obese /Rectal: Present: Exam deferred Extremity: Present: normal range of motion Skin Exam: Present: normal color Lymphatic: Present: no adenopathy Neurologic: Present: motor vehicle light assembler II-XII nml as tested, no motor/sensory deficits, alert, normal mood/affect, oriented x 3, abnormal gait, motor weakness, other - Episodic dizziness and lightheadedness Appearance: Present: appropriate appearance, appropriate insight, neat, no memory impairment Eye contact: Present: cooperative, good eye contact, normal speech Thoughts: Present: normal thought pattern, no apparent hallucination Assessment/Plan Plan Narrative: 1. Extend observation stay 2. Nursing to do three-way blood pressure and pulse checks every shift 3. Encourage increased oral fluids 4. Decrease hydrochlorothiazide to 25 mg daily 5. Decrease gabapentin to 300 mg 4 times daily 6. Add metoprolol 25 mg p.o. twice daily 7. Dr. Waldron to assume medical management. - Problems/Diagnosis (1) Syncope and collapse Problem: Acute (2) Postural dizziness with near syncope Problem: Acute (3) Concussion Problem: Acute Qualifiers: Encounter type: initial encounter Loss of consciousness presence/duration: with LOC of unspecified duration Qualified Code(s): S06.0X9A - Concussion with loss of consciousness of unspecified duration, initial encounter (4) Hematoma of scalp Problem: Acute Qualifiers: Encounter type: subsequent encounter Qualified Code(s): S00.03XD - Contusion of scalp, subsequent encounter (5) Pain Problem: Acute (6) Atrial fibrillation/flutter Problem: Acute
[2019-06-10] MEDS: GABAPENTIN 300 MG CAPSULE PO SCH ×2 (17:21→20:29)
[2019-06-10] MEDS ORDERED: WARFARIN SODIUM 2 MG TABLET PO SCH (19:39)
[2019-06-10] MEDS: NAPROXEN SODIUM 220 MG TABLET PO SCH (20:29)
[2019-06-10] MEDS: AMITRIPTYLINE HCL 10 MG TABLET PO SCH (20:29)
[2019-06-10] MEDS: SIMVASTATIN 10 MG TABLET PO SCH (20:29)
[2019-06-10] MEDS: METOPROLOL TARTRATE 25 MG TABLET PO SCH (20:56)
[2019-06-11 06:21] LABS: Hematocrit 37.7 % (37.0-47.0); Mean Cell Volume 101.3 fl (78-100); Mean Corpuscular Hemoglobin 32.3 pg (27-31); Mean Corpuscular Hgb Conc 31.8 g/dl (32-36); Neutrophil # 3.4 K/mm3 (1.3-6.0); Neutrophil % 54.9 % (42-75.0); Platelet Count 151 K/mm3 (150-450); Red Blood Count 3.72 M/mm3 (4.2-5.4); Red Cell Distribution Width 14.3 % (11.5-14.0); White Blood Count 6.3 K/mm3 (4.0-10.5)
[2019-06-11 06:30] LABS: Prothrombin Time (Patient) 25.6 Seconds (9.1-10.7)
[2019-06-11 06:32] LABS: INR 2.69 INR (0.92-1.08)
[2019-06-11 06:37] LABS: Albumin * 3.1 gm/dl (3.4-5.0); BUN/Creatinine Ratio 19.6 (9.0-21.6); Bilirubin, Total 0.5 mg/dL (0.0-1.1); Ca. Corrected For Albumin 9.7 mg/dL (8.4-10.2); Calcium * 9.3 mg/dL (7.9-10.9); Carbon Dioxide 30.3 mmol/L (24-32.6); Potassium 4.3 mmol/L (3.4-4.6); Total Protein 6.1 gm/dL (6.2-8.2)
[2019-06-11] MEDS: LEVOTHYROXINE SODIUM 100 MCG TABLET PO SCH (06:38)
[2019-06-11] MEDS: CALCIUM CARBONATE/VITAMIN D3 1 TAB TABLET PO SCH (08:18)
[2019-06-11] MEDS: LOSARTAN POTASSIUM 50 MG TABLET PO SCH (08:19)
[2019-06-11] MEDS: POTASSIUM CHLORIDE 20 MEQ TABLET.SA PO SCH (08:19)
[2019-06-11] MEDS: MAGNESIUM OXIDE 400 MG TABLET PO SCH (08:19)
[2019-06-11] MEDS: METOPROLOL TARTRATE 25 MG TABLET PO SCH (08:19)
[2019-06-11] MEDS: GABAPENTIN 300 MG CAPSULE PO SCH ×2 (08:20→14:04)
[2019-06-11] MEDS: SERTRALINE HCL 100 MG TABLET PO SCH (08:20)
[2019-06-11] MEDS: VITAMIN E (DL,TOCOPHERYL ACET) 400 UNITS CAPSULE PO SCH (08:20)
[2019-06-11] MEDS ORDERED: HYDROCHLOROTHIAZIDE 12.5 MG CAPSULE PO SCH (09:00)
[2019-06-11] MEDS ORDERED: NYSTATIN 15 APPL BTL TP SCH (09:00)
--- NOTE | 2019-06-11 11:20 | DS ---
Date of Discharge:: 06/11/19 Description of Stay: 78-year-old female with history of chronic A. fib on Coumadin placed in observation for closed head injury and concussion after a ground-level fall. Patient denies syncope at the time. Patient had large right-sided hematoma in the scalp, no intracranial pathology identified and her head CT. During her stay here patient's vital signs been stable and her rate has been within normal limits. Blood pressures have been okay. Patient only concern is that she has had a headache off and on since the fall, currently resolved, but otherwise feels well. Her INR returned to normal at 2.69 last time was checked. Patient to be discharged home in stable condition to follow-up with Janis Lau the next 1 to 2 weeks. No changes to medications. Patient was in agreement with treatment plan. Procedures Performed: none Results and Findings: Lab Pending Results 06/09/19 12:39: WBC 7.6, RBC 3.80 L, Hgb 12.4 L, Hct 38.5, MCV 101.3 H, MCH 32.6 H, MCHC 32.2, RDW 14.5 H, Plt Count 171, MPV 10.9, Immature Gran % (Auto) 0.30, Immature Gran # (Auto) 0.02, Neutrophils % 68.5, Lymphocytes % 16.1 L, Monocytes % 10.1 H, Eosinophils % 4.5 H, Basophils % 0.5, Nucleated RBC % 0.0, Neutrophils # 5.2, Lymphocytes # 1.23 L, Monocytes # 0.8, Eosinophils # 0.3, Absolute Basophils 0.0 06/09/19 12:39: Sodium 143 H, Plasma Sodium 143 H, Potassium 4.3, Chloride 105, Carbon Dioxide 28.6, Anion Gap 13.7, BUN 23, Creatinine 1.19, Est GFR (Non-Af Amer) 47 L, BUN/Creatinine Ratio 19.3, Random Glucose 105, Calcium 8.9, Calcium Adj for Albumin 8.7, Total Bilirubin 0.6, AST 20, ALT 8 L, Alkaline Phosphatase 88, Total Protein 7.1, Albumin 3.8, Ethyl Alcohol Less than 3.0 06/09/19 12:39: PT 31.5 H, INR (Anticoag Therapy) 3.33 H 06/09/19 12:43: Troponin I Less than 0.017 06/09/19 14:14: Urine Opiates Screen Negative, Barbiturate Screen Negative, Ur Phencyclidine Scrn Negative, Urine Amphetamine Negative, U Benzodiazepines Scrn Negative, Urine Cocaine Screen Negative, Urine Marijuana (THC) Negative 06/09/19 14:14: Urine Color Pale yellow, Urine Appearance Slightly cloudy, Urine pH 6.0, Ur Specific [place] 1.010, Urine Protein Negative, Urine Glucose (UA) Negative, Urine Ketones Negative, Urine Blood Negative, Urine Nitrate Negative, Urine Bilirubin Negative, Urine Urobilinogen Normal, Ur Leukocyte Esterase 25 H, Urine RBC 0-5, Urine WBC 5-10 H, Ur Epithelial Cells 5-10 H, Urine Bacteria 3+ H, Hyaline Casts 0-5 H, Urine Culture Comments Culture to follow 06/10/19 05:30: WBC 6.1, RBC 3.73 L, Hgb 12.1 L, Hct 37.7, MCV 101.1 H, MCH 32.4 H, MCHC 32.1, RDW 14.3 H, Plt Count 149 L, MPV 10.8, Immature Gran % (Auto) 0.20, Immature Gran # (Auto) 0.01, Neutrophils % 56.6, Lymphocytes % 21.2, Monocytes % 11.7 H, Eosinophils % 9.5 H, Basophils % 0.8, Nucleated RBC % 0.0, Neutrophils # 3.5, Lymphocytes # 1.29 L, Monocytes # 0.7, Eosinophils # 0.6, Absolute Basophils 0.1 06/10/19 05:30: Sodium 145 H, Plasma Sodium 145 H, Potassium 4.3, Chloride 109 H, Carbon Dioxide 29.4, Anion Gap 10.9, BUN 21, Creatinine 1.06, Est GFR (Non-Af Amer) 54 L, BUN/Creatinine Ratio 19.8, Random Glucose 106, Calcium 9.2, Calcium Adj for Albumin 9.5, Total Bilirubin 0.7, AST 18, ALT 8 L, Alkaline Phosphatase 81, Total Protein 6.2, Albumin 3.2 L 06/10/19 05:30: PT 31.6 H, INR (Anticoag Therapy) 3.34 H 06/11/19 06:10: PT 25.6 H, INR (Anticoag Therapy) 2.69 H 06/11/19 06:10: WBC 6.3, RBC 3.72 L, Hgb 12.0 L, Hct 37.7, MCV 101.3 H, MCH 32.3 H, MCHC 31.8 L, RDW 14.3 H, Plt Count 151, MPV 11.0, Immature Gran % (Auto) 0.30, Immature Gran # (Auto) 0.02, Neutrophils % 54.9, Lymphocytes % 21.7, Monocytes % 11.6 H, Eosinophils % 10.5 H, Basophils % 1.0, Nucleated RBC % 0.0, Neutrophils # 3.4, Lymphocytes # 1.36 L, Monocytes # 0.7, Eosinophils # 0.7, Absolute Basophils 0.1 06/11/19 06:10: Sodium 142, Plasma Sodium 142, Potassium 4.3, Chloride 108 H, Carbon Dioxide 30.3, Anion Gap 8.0, BUN 20, Creatinine 1.02, Est GFR (Non-Af Amer) 56 L, BUN/Creatinine Ratio 19.6, Random Glucose 117 H, Calcium 9.3, Calcium Adj for Albumin 9.7, Total Bilirubin 0.5, AST 16, ALT 8 L, Alkaline Phosphatase 79, Total Protein 6.1 L, Albumin 3.1 L Discharge Location: Home Disposition: Home self-care Condition: Stable Discharge Activity: Activity as tolerated Discharge Diet: Low fat/chol Referrals: Fany Waldron DO [Primary Care Provider] - Two Weeks Additional Patient Instructions (free text): -Please make TCM appointment unless [facility] discharge, or if following up with outside provider. Thank you! Svitlana @ [facility] [phone] or Fany at [phone]. Complete Home Medications List: Complete Home Medication List: Potassium Chloride [K-Dur] 20 meq PO DAILY #0 04/24/14 Simvastatin [Zocor] 10 mg PO HS #0 04/24/14 metFORMIN HCL [Glucophage] 850 mg PO TID #0 04/24/14 Naproxen Sodium [Aleve] 440 mg PO HS 04/21/16 Vitamin E Acetate [Vitamin E] 800 unit PO DAILY 02/19/17 amitriptyline 10 mg tablet 20 mg PO HS tab 04/30/18 gabapentin 300 mg capsule 600 mg PO QID cap 04/30/18 hydrochlorothiazide 50 mg tablet 50 mg PO DAILY 04/30/18 losartan 100 mg tablet 100 mg PO DAILY 04/30/18 warfarin 2 mg tablet 8 mg PO SUTUTHSA 04/30/18 Calcium Carbonate/Vitamin D3 [Calcarb 600 With Vitamin D] 1 tab PO BID 06/09/19 Levothyroxine Sodium [Levo-T] 200 mcg PO DAILY 06/09/19 Magnesium Oxide [Mag-Ox 400] 400 mg PO DAILY 06/09/19 Sertraline HCl [Zoloft] 100 mg PO DAILY 06/09/19 Warfarin Sodium [Coumadin] 6 mg PO MOWEFR 06/09/19
[2019-06-11 14:34] VITALS: BP 132/88
== END 2019-06-11 14:37 | disposition home or self-care (01) ==
LOC: MS 12:22 → ER 12:22 → MS 17:15
PROVIDERS: ADMIT Family Medicine; ATTEND Family Medicine
DX: I48.20 Chronic atrial fibrillation, unspecified; W18.39XA Other fall on same level, initial encounter; S06.0X9A Concussion with loss of consciousness of unspecified duration, initial encounter; S00.03XA Contusion of scalp, initial encounter; Z79.01 Long term (current) use of anticoagulants; R55 Syncope and collapse; Z23 Encounter for immunization
CPT/HCPCS: 36415; 70450; 71010; 71045; 72125; 80053; 80307; 80320; 81001; 84484; 85025; 85610; 87077; 87086; 87186; 90686; 93005; 97110; 97161; 99285; G0008; G0378; G0481

== ENCOUNTER 2019-12-24 10:26 | Inpatient (IN) ==
--- NOTE | 2019-12-24 10:45 | ERNOTE ---
Medical Problem HPI - Narrative Date of Service: 12/24/19 - General Chief Complaint: General Assessment Time Seen by Provider: 12/24/19 10:30 Source: patient Exam Limitations: no limitations - Immun/Allergies/Home Medications Immunizations: IMMUNIZATION HX Immunizations Up to Date Yes History of Influenza Vaccine Yes Hx Pneumococcal Vaccination Yes Allergies/Adverse Reactions: Allergies penicillin G Allergy (Mild, Verified 12/24/19 10:41) Hives codeine [Codeine] Adverse Reaction (Mild, Verified 12/24/19 10:41) Itching Home Medications: HOME MEDICATIONS Simvastatin [Zocor] 10 mg PO HS #0 04/24/14 [Last Taken 02/18/17] metFORMIN HCL [Glucophage] 850 mg PO TID #0 04/24/14 [Last Taken 02/18/17] Naproxen Sodium [Aleve] 440 mg PO HS 04/21/16 [Last Taken 02/19/17] Vitamin E Acetate [Vitamin E] 800 unit PO DAILY 02/19/17 [Last Taken 02/18/17] amitriptyline 10 mg tablet 20 mg PO HS tab 04/30/18 [Last Taken Unknown] gabapentin 300 mg capsule 600 mg PO QID cap 04/30/18 [Last Taken Unknown] hydrochlorothiazide 50 mg tablet 50 mg PO DAILY 04/30/18 [Last Taken Unknown] losartan 100 mg tablet 100 mg PO DAILY 04/30/18 [Last Taken Unknown] warfarin 2 mg tablet 6 mg PO QDIPM 04/30/18 [Last Taken Unknown] Calcium Carbonate/Vitamin D3 [Calcarb 600 With Vitamin D] 1 tab PO BID 06/09/19 [Last Taken Unknown] Levothyroxine Sodium [Levo-T] 200 mcg PO DAILY 06/09/19 [Last Taken 06/09/19 07:00] Magnesium Oxide [Mag-Ox 400] 400 mg PO DAILY 06/09/19 [Last Taken Unknown] Sertraline HCl [Zoloft] 100 mg PO DAILY 06/09/19 [Last Taken Unknown] Baclofen 5 mg PO TID PRN #21 tab 12/22/19 [Last Taken Unknown] - Pain Score Pain Score #1 Pain Score: 7 - History of Present History Narrative: 79 yr old female with history of atrial fibrillation, DM type 2, HLD, HTN, diabetic neuropathy, anticoagulated on Coumadin, history of right sided sciatica presents with right sided low back and right leg pain. She has had back and right leg pain for several years, but this became worse last week. She was evaluated in the ER on and started on low dose Baclofen. Denies any improvement in her pain since then. Reports increased generalized weakness since starting the Baclofen. She has fallen onto her knees twice since she was seen in the ER because she states her legs just give out. Denies any tingling, numbness or focal weakness. States she is having difficulty taking care of herself at home. She also has been trying to take care of her who previously had a stroke. She brought him home from the hospital last January and admits that since that time she has experienced a decline in her health. They have been talking about going in to a half-way. She states it was too difficult to go out of the house this past week, so she did not follow up with her primary care provider. States it is too much work and effort to make meals, clean and care for herself and . They late in life and do not have any children. Their only bathroom is upstairs and she has been unable to go up there. They are using a commode downstairs. Denies any SOB or C/P. Denies any difficulty in urination. Reports black stools yesterday. Reports decreased oral intake. Date (Duration): 12/24/19 Time (Timing): 10:43 Timing: constant Severity: moderate Modifying Factors - (Improves): Present: movement - twisting, movement Modifying Factors - (Worsens): Present: rest Review of Systems - Review of Systems Constitutional: Present: weakness - legs, malaise, decreased activity level - due to pain and weakness. Absent: fever EYE: Present: no symptoms reported ENT: Present: no symptoms reported Respiratory: Absent: shortness of breath, cough Cardiology: Absent: chest pain Gastrointestinal/Abdominal: Present: eating less, drinking less, other - Had dark stools yesterday. . Absent: nausea, vomiting, diarrhea, abdominal pain Genitourinary: Absent: dysuria Musculoskeletal: Present: back pain, other - right leg pain Skin: Present: other - various chronic open sores on legs Neurological: Present: depressed, weakness. Absent: numbness, tingling Endocrine: Present: no symptoms reported Hematologic/Lymphatic: Present: other - on Coumadin Psych: Present: depressed All Other Systems: All systems neg except as marked Medical History (Last Reviewed 12/24/19 @ 11:07 by VIKASH Otto) Atrial fibrillation Uses hearing aid Acquired hammer toe Bunion Diabetes mellitus, type II Onset Date: ~1989 Hyperlipidemia Hypertension Hypothyroidism Nail disease Onset Date: ~09/04/12 Neuropathy Onset Date: Unknown Plantar fascial fibromatosis Onset Date: ~09/09/12 Xerosis of skin Onset Date: ~09/04/12 feet Surgical History: Surgical History (Last Reviewed 12/24/19 @ 11:07 by VIKASH Otto) History of Fatty Tumor Removal Onset Date: ~1980 History of YAG laser capsulotomy of lens Onset Date: ~03/2005 Right 04/2006 Left History of adenoidectomy Onset Date: Unknown History of carpal tunnel release Onset Date: ~1994 Right History of cataract Onset Date: ~2000 Right 06/2001 Left 07/2001 History of cholecystectomy Onset Date: ~1982 History of colonoscopy Onset Date: ~01/14/12 WNL-Dr. Neri History of flexible sigmoidoscopy Onset Date: ~1998 Meyer-infrared coagulation of hemorrhoids done 04/1999 and 07/1999 History of knee replacement Onset Date: ~2003 Right 12/2003 Dr. Jones Left 2004 Dr. Chacon History of tonsillectomy Onset Date: Unknown Family History: Family History (Last Reviewed 12/24/19 @ 11:07 by VIKASH Otto) Brother Alive and well Sister Alive and well Father , age 89-natural causes Paralysis Mother , age 82 Cancer Esophageal CA Sister , age 63 Epilepsy Social History: (Last Reviewed 12/24/19 @ 11:07 by VIKASH Otto) Social History: Marital status: household members: spouse current occupational status: retired Highest education level completed: high school graduate Service: No Tobacco: Smoking Status: Never smoker Alcohol: alcohol intake: never Substance Use: substance use type: does not use Dietary Habits: caffeine: Yes Physical Exam - Physical Exam General Appearance: Present: wd/wn, no apparent distress, lethargic Head Exam: Present: normal inspection, no evidence of injury Eye Exam: Normal inspection: bilateral, PERRL: bilateral, EOMI: bilateral Ears, Nose, Throat: Present: normal except -, normal pharynx, dry mucous membranes Neck: Present: normal inspection Respiratory: Present: no respiratory distress, normal breath sounds, no accessory muscle use, chest nontender, lungs clear Cardiovascular/Chest: Present: regular rate, rhythm, no murmur, normal peripheral pulses Gastrointestinal/Abdominal: Present: normal bowel sounds, nontender, nondistended, soft - Morbidly obese Rectal Exam: Present: other - hemoccult positive Back Exam: Present: normal inspection, normal range of motion, other - Tenderness over the right SI joint and right sciatic notch. Extremity Exam: Present: normal except - - old open sores on lower extremities , non-tender, normal range of motion, no edema, other - STR increases her back pain bilaterally at 30 degrees, no radicular pain. Ecchymosis over the patella bilaterally. Neurological Exam: Present: alert, oriented, normal mood/affect, motor weakness - General Requires almost full lifting of two people to transfer from bed to chair Skin Exam: Present: normal color, warm/dry, other - various chronic open sores Progress - Results and Orders Patient's Lab Results:: I have reviewed the patient's lab results. Results and Orders: Laboratory Tests 12/24/19 11:53 WBC 12.2 H RBC 3.70 L Hgb 12.4 L Hct 37.7 Plt Count 173 Laboratory Tests 12/24/19 11:53 Sodium 141 Potassium 4.1 Chloride 104 Carbon Dioxide 24.7 Anion Gap 16.4 H BUN 54 H D Creatinine 1.42 H Random Glucose 146 H Calcium 9.8 Total Bilirubin 1.0 AST 40 ALT 22 Alkaline Phosphatase 80 Total Protein 7.6 Laboratory Tests 12/24/19 12/24/19 11:53 12:13 PT 20.8 H INR (Anticoag Therapy) 2.16 H Stool Occult Blood Positive H Laboratory Tests 12/24/19 12:13 Urine Color Yellow Urine Appearance Slightly cloudy Urine pH 5.0 Ur Specific [place] 1.025 Urine Protein Negative Urine Glucose (UA) Negative Urine Ketones Negative Urine Blood Negative Urine Nitrate Positive H Urine Bilirubin Negative Urine Urobilinogen Normal Ur Leukocyte Esterase 100 H Urine RBC None seen Urine WBC 25-50 H Ur Epithelial Cells 0-5 Urine Bacteria 3+ H Urine Culture Comments Culture to follow - Vital Signs Patient's Vital Signs:: I have reviewed the patient's vital signs. Vital Signs: Vital Signs 12/24/19 10:32 Temperature 36.9 C Pulse Rate 80 Respiratory Rate 18 Blood Pressure 143/83 O2 Sat by Pulse Oximetry 94 - Progress/Reassessment Chief Complaint: General Assessment Progress Note-Subjective: 12/24/19 13:23 Test results , etiology and treatment plan discussed. Discussed admission to the hospital. Patient is agreeable as she knows she cannot care for herself. It is unsafe for her to return home as she has fallen twice seen seen here in the ER on . In addition she is anticoagulated, so at risk for life threatening complications from a fall. Case staffed with Dr. Ruelas who graciously accepted her care. She will need IV antibiotics, and IV fluids. Will also consult clinical services director for discharge planning to a termite renewal inspector care. Plan - Plan Plan: admit to floor Departure Clinical Impression: Weakness generalized, Sciatica of right side, Anticoagulant long-term use, Physical debility, Renal insufficiency UTI (urinary tract infection) Qualifiers: Urinary tract infection type: site unspecified Hematuria presence: without hematuria Qualified Code(s): N39.0 - Urinary tract infection, site not specified Diabetes mellitus Qualifiers: Diabetes mellitus type: type 2 Diabetes mellitus [facility] insulin use: without [facility] use Diabetes mellitus complication status: with neurologic complications Diabetes mellitus complication detail: with polyneuropathy Qualified Code(s): E11.42 - Type 2 diabetes mellitus with diabetic polyneuropathy - Departure Disposition: Still a patient Condition: Good
[2019-12-24] MEDS ORDERED: METHYLPREDNISOLONE SOD SUCC/PF 40 MG/ML VIAL IM ONE (11:00)
[2019-12-24 11:58] LABS: Hematocrit 37.7 % (37.0-47.0); Hemoglobin 12.4 gm/dL (12.5-16.0); Mean Cell Volume 101.9 fl (78-100); Mean Corpuscular Hemoglobin 33.5 pg (27-31); Mean Corpuscular Hgb Conc 32.9 g/dl (32-36); Mean Platelet Volume 11.4 fl (8-12.5); Neutrophil # 9.8 K/mm3 (1.3-6.0); Neutrophil % 80.6 % (42-75.0); Platelet Count 173 K/mm3 (150-450); Red Cell Distribution Width 14.8 % (11.5-14.0); White Blood Count 12.2 K/mm3 (4.0-10.5)
[2019-12-24 12:06] LABS: Prothrombin Time (Patient) 20.8 Seconds (9.1-10.7)
[2019-12-24 12:13] LABS: Albumin * 3.8 gm/dl (3.4-5.0); Anion Gap 16.4 mmol/L (6.8-13.8); Ca. Corrected For Albumin 9.6 mg/dL (8.4-10.2); Calcium * 9.8 mg/dL (7.9-10.9); Carbon Dioxide 24.7 mmol/L (24-32.6); Potassium 4.1 mmol/L (3.4-4.6); Total Protein 7.6 gm/dL (6.2-8.2)
[2019-12-24 12:27] LABS: INR 2.16 INR (0.92-1.08)
[2019-12-24] MEDS ORDERED: PANTOPRAZOLE SODIUM 40 MG/100 ML PIGGYBACK IV ONE (12:30)
[2019-12-24 12:32] LABS: Urine Appearance Slightly Cloudy (CLEAR); Urine Bilirubin Negative (NEGATIVE); Urine Blood Negative /ul (NEGATIVE); Urine Color Yellow; Urine Ketone Negative (NEGATIVE)
[2019-12-24 12:33] LABS: Urine Bacteria 3+; Urine Nitrite Positive (NEGATIVE); Urine Protein Negative (NEGATIVE); Urine RBC None Seen /hpf (0-5); Urine Specific Gravity 1.025 SP.GR. (1.005-1.010); Urine Urobilinogen Normal (NORMAL); Urine WBC 25-50 /hpf (0-5)
[2019-12-24] MEDS ORDERED: LEVOFLOXACIN IN DEXTROSE 5 % 500 MG/100 ML BAG IV SCH (13:00)
[2019-12-24] MEDS ORDERED: NORMAL SALINE 1,000 ML IV ONE (13:01)
[2019-12-24] MEDS: PANTOPRAZOLE SODIUM 40 MG in NORMAL SALINE 100 ML IV SCH (14:34)
[2019-12-24] MEDS: NORMAL SALINE 1,000 ML IV PRN (20:22)
--- NOTE | 2019-12-25 00:16 | HP ---
Chief Complaint - Chief Complaint Date of Service: 12/25/19 Time of Service: 00:15 Chief Complaint: Fall, Right leg weakness and pain, Black stools History of Present Illness: Luly is a 79 yo female that reports progressive right leg weakness and pain over the past week along with black stools over the past 48 hours. She has been getting weaker and having falls at home. She is chronically on coumadin for atrial fibrillation. She denies abdominal pain, heartburn, or reflux. She reports sharp pain shooting down her right leg and weakness. No muscle cramps, bowel change, or bladder change. She denies fever, chills, chest pain, or shortness of breath. She reports she has never had bloody stools before. She has had a couple falls in the past week. Medical History (Last Reviewed 12/24/19 @ 14:41 by Radha Quintanilla RN) Atrial fibrillation Uses hearing aid Acquired hammer toe Bunion Diabetes mellitus, type II Onset Date: ~1989 Hyperlipidemia Hypertension Hypothyroidism Nail disease Onset Date: ~09/04/12 Neuropathy Onset Date: Unknown Plantar fascial fibromatosis Onset Date: ~09/09/12 Xerosis of skin Onset Date: ~09/04/12 feet Surgical History: Surgical History (Last Updated 12/24/19 @ 14:42 by Radha Quintanilla RN) History of left knee replacement History of Fatty Tumor Removal Onset Date: ~1980 History of YAG laser capsulotomy of lens Onset Date: ~03/2005 Right 04/2006 Left History of adenoidectomy Onset Date: Unknown History of carpal tunnel release Onset Date: ~1994 Right History of cataract Onset Date: ~2000 Right 06/2001 Left 07/2001 History of cholecystectomy Onset Date: ~1982 History of colonoscopy Onset Date: ~01/14/12 WNL-Dr. Neri History of flexible sigmoidoscopy Onset Date: ~1998 Meyer-infrared coagulation of hemorrhoids done 04/1999 and 07/1999 History of knee replacement Onset Date: ~2003 Right 12/2003 Dr. Jones Left 2004 Dr. Chacon History of tonsillectomy Onset Date: Unknown Family History: Family History (Last Reviewed 12/24/19 @ 14:44 by Radha Quintanilla RN) Brother Alive and well Sister Alive and well Father , age 89-natural causes Paralysis Mother , age 82 Cancer Esophageal CA Sister , age 63 Epilepsy Other Patient's sister is Social History: (Last Reviewed 12/24/19 @ 11:07 by VIKASH Otto) Social History: Marital status: household members: spouse current occupational status: retired Highest education level completed: high school graduate Service: No Tobacco: Smoking Status: Never smoker Alcohol: alcohol intake: never Substance Use: substance use type: does not use Dietary Habits: caffeine: Yes Review Of Systems (GEN) - Review of Systems Generalized/Overall Review: Present: Weakness. Absent: Chills, Fever EENTM: Present: No Symptoms Reported Respiratory: Absent: Cough, Shortness of Breath Cardiac: Absent: Chest Pain, Edema Abdominal: Present: Melena. Absent: Nausea, Vomiting, Hematemesis, Abdominal Pain, Bright blood from rectum Genitourinary: Absent: Burning, Itching, Urgency, Frequency Musculoskeletal: Present: Muscle Pain Neurological: Present: Weakness. Absent: Headache Skin: Present: No Symptoms Reported Immunizations: IMMUNIZATION HX Immunizations Up to Date Yes History of Influenza Vaccine Yes Hx Pneumococcal Vaccination Yes Allergies/Adverse Reactions: Allergies Allergy/AdvReac Type Severity Reaction Status Date / Time penicillin G Allergy Mild Hives Verified 12/24/19 14:32 codeine [Codeine] AdvReac Mild Itching Verified 12/24/19 14:32 Home Medications: HOME MEDICATIONS Simvastatin [Zocor] 10 mg PO HS #0 04/24/14 [Last Taken 12/23/19] metFORMIN HCL [Glucophage] 850 mg PO TID #0 04/24/14 [Last Taken 12/23/19] Vitamin E Acetate [Vitamin E] 450 unit PO TID 02/19/17 [Last Taken 12/23/19] gabapentin 300 mg capsule 600 mg PO BID cap 04/30/18 [Last Taken Unknown] warfarin 2 mg tablet 6 mg PO QDIPM 04/30/18 [Last Taken 12/23/19] Calcium Carbonate/Vitamin D3 [Calcarb 600 With Vitamin D] 1 tab PO BID 06/09/19 [Last Taken 12/23/19] Levothyroxine Sodium [Levo-T] 200 mcg PO DAILY 06/09/19 [Last Taken 12/23/19] Magnesium Oxide [Mag-Ox 400] 400 mg PO DAILY 06/09/19 [Last Taken 12/23/19] Sertraline HCl [Zoloft] 100 mg PO DAILY 06/09/19 [Last Taken 12/23/19] Alendronate Sodium 70 mg PO Q7D 12/24/19 [Last Taken 12/19/19] Atenolol [Tenormin] 50 mg PO DAILY 12/24/19 [Last Taken 12/23/19] Cinnamon Bark [Cinnamon] 1,000 mg PO BID 12/24/19 [Last Taken 12/23/19] Raine Root 550 mg PO DAILY 12/24/19 [Last Taken Unknown] Losartan/Hydrochlorothiazide [Losartan-Hctz 100-12.5 mg Tab] 1 ea PO DAILY 12/24/19 [Last Taken 12/23/19] Zinc 50 mg PO DAILY 12/24/19 [Last Taken 12/23/19] Exam - Exam Vital Signs: Vital Signs - Last Taken Temp 36.7 C 12/24/19 19:25 Pulse 96 12/24/19 19:25 Resp 24 H 12/24/19 19:25 BP 115/49 12/24/19 19:25 Pulse Ox 95 12/24/19 19:25 Constitutional: Present: Alert, Oriented x3, Cooperative ENT Exam: Present: hearing grossly normal Eye Exam: bilateral eye: normal inspection Respiratory: Present: lungs clear, normal breath sounds, no respiratory distress Cardiovascular/Chest: Present: no murmur, irregularly irregular Peripheral Pulses: radial (R): 2+, radial (L): 2+ Abdomen: Present: Normal bowel sounds, soft, nontender, nondistended Extremity: Present: lower extremity edema Skin Exam: Present: normal color, warm/dry, no cyanosis Neurologic: Present: alert, normal mood/affect, oriented x 3, other - right leg hypersensitive to touch. Absent: sensory deficit Appearance: Present: appropriate appearance, appropriate insight Eye contact: Present: cooperative, good eye contact, normal speech Thoughts: Present: normal thought pattern, no apparent hallucination Diagnostic Studies: Abnormal Lab Results 12/24/19 12/24/19 12/24/19 Range/Units 11:53 11:53 11:53 WBC 12.2 H (4.0-10.5) K/mm3 RBC 3.70 L (4.2-5.4) M/mm3 Hgb 12.4 L (12.5-16.0) gm/dL MCV 101.9 H (78-100) fl MCH 33.5 H (27-31) pg RDW 14.8 H (11.5-14.0) % Immature Gran % (Auto) 0.50 H (0.001-0.429) % Immature Gran # (Auto) 0.06 H (0.000-0.0310) K/mm3 Neutrophils % 80.6 H (42-75.0) % Lymphocytes % 8.5 L (20-51) % Monocytes % 9.2 H (0.0-9) % Neutrophils # 9.8 H (1.3-6.0) K/mm3 Lymphocytes # 1.04 L (1.5-3.5) k/mm3 Monocytes # 1.1 H (0.0-1.0) k/mm3 PT 20.8 H (9.1-10.7) Seconds INR (Anticoag Therapy) 2.16 H (0.92-1.08) INR Anion Gap 16.4 H (6.8-13.8) mmol/L BUN 54 H D (3-23) mg/dL Creatinine 1.42 H (0.4-1.4) mg/dL Est GFR (Non-Af Amer) 38 L (60-130) mL/min BUN/Creatinine Ratio 38.0 H (9.0-21.6) Random Glucose 146 H (70-110) mg/dL Urine Nitrate (NEGATIVE) Ur Leukocyte Esterase (NEGATIVE) /ul Urine WBC (0-5) /hpf Urine Bacteria (NONE) Stool Occult Blood 12/24/19 12/24/19 Range/Units 12:13 12:13 WBC (4.0-10.5) K/mm3 RBC (4.2-5.4) M/mm3 Hgb (12.5-16.0) gm/dL MCV (78-100) fl MCH (27-31) pg RDW (11.5-14.0) % Immature Gran % (Auto) (0.001-0.429) % Immature Gran # (Auto) (0.000-0.0310) K/mm3 Neutrophils % (42-75.0) % Lymphocytes % (20-51) % Monocytes % (0.0-9) % Neutrophils # (1.3-6.0) K/mm3 Lymphocytes # (1.5-3.5) k/mm3 Monocytes # (0.0-1.0) k/mm3 PT (9.1-10.7) Seconds INR (Anticoag Therapy) (0.92-1.08) INR Anion Gap (6.8-13.8) mmol/L BUN (3-23) mg/dL Creatinine (0.4-1.4) mg/dL Est GFR (Non-Af Amer) (60-130) mL/min BUN/Creatinine Ratio (9.0-21.6) Random Glucose (70-110) mg/dL Urine Nitrate Positive H (NEGATIVE) Ur Leukocyte Esterase 100 H (NEGATIVE) /ul Urine WBC 25-50 H (0-5) /hpf Urine Bacteria 3+ H (NONE) Stool Occult Blood Positive H Laboratory Results WBC 12.2 K/mm3 (4.0-10.5) H 12/24/19 11:53 RBC 3.70 M/mm3 (4.2-5.4) L 12/24/19 11:53 Hgb 12.4 gm/dL (12.5-16.0) L 12/24/19 11:53 Hct 37.7 % (37.0-47.0) 12/24/19 11:53 MCV 101.9 fl (78-100) H 12/24/19 11:53 MCH 33.5 pg (27-31) H 12/24/19 11:53 MCHC 32.9 g/dl (32-36) 12/24/19 11:53 RDW 14.8 % (11.5-14.0) H 12/24/19 11:53 Plt Count 173 K/mm3 (150-450) 12/24/19 11:53 MPV 11.4 fl (8-12.5) 12/24/19 11:53 Immature Gran % (Auto) 0.50 % (0.001-0.429) H 12/24/19 11:53 Immature Gran # (Auto) 0.06 K/mm3 (0.000-0.0310) H 12/24/19 11:53 Neutrophils % 80.6 % (42-75.0) H 12/24/19 11:53 Lymphocytes % 8.5 % (20-51) L 12/24/19 11:53 Monocytes % 9.2 % (0.0-9) H 12/24/19 11:53 Eosinophils % 1.0 % (0.0-3.0) 12/24/19 11:53 Basophils % 0.2 % (0.0-1.0) 12/24/19 11:53 Nucleated RBC % 0.0 k/mm3 (0-1) 12/24/19 11:53 Neutrophils # 9.8 K/mm3 (1.3-6.0) H 12/24/19 11:53 Lymphocytes # 1.04 k/mm3 (1.5-3.5) L 12/24/19 11:53 Monocytes # 1.1 k/mm3 (0.0-1.0) H 12/24/19 11:53 Eosinophils # 0.1 k/mm3 (0.0-0.7) 12/24/19 11:53 Absolute Basophils 0.0 k/mm3 (0.0-0.1) 12/24/19 11:53 PT 20.8 Seconds (9.1-10.7) H 12/24/19 11:53 INR (Anticoag Therapy) 2.16 INR (0.92-1.08) H 12/24/19 11:53 Sodium 141 mmol/L (132-142) 12/24/19 11:53 Plasma Sodium 142 mmol/L (130-142) 12/24/19 11:53 Potassium 4.1 mmol/L (3.4-4.6) 12/24/19 11:53 Chloride 104 mmol/L (97-106) 12/24/19 11:53 Carbon Dioxide 24.7 mmol/L (24-32.6) 12/24/19 11:53 Anion Gap 16.4 mmol/L (6.8-13.8) H 12/24/19 11:53 BUN 54 mg/dL (3-23) H D 12/24/19 11:53 Creatinine 1.42 mg/dL (0.4-1.4) H 12/24/19 11:53 Est GFR (Non-Af Amer) 38 mL/min (60-130) L 12/24/19 11:53 BUN/Creatinine Ratio 38.0 (9.0-21.6) H 12/24/19 11:53 Random Glucose 146 mg/dL (70-110) H 12/24/19 11:53 Calcium 9.8 mg/dL (7.9-10.9) 12/24/19 11:53 Calcium Adj for Albumin 9.6 mg/dL (8.4-10.2) 12/24/19 11:53 Total Bilirubin 1.0 mg/dL (0.0-1.1) 12/24/19 11:53 AST 40 U/L (0-48) 12/24/19 11:53 ALT 22 U/L (19-67) 12/24/19 11:53 Alkaline Phosphatase 80 U/L (50-170) 12/24/19 11:53 Total Protein 7.6 gm/dL (6.2-8.2) 12/24/19 11:53 Albumin 3.8 gm/dl (3.4-5.0) 12/24/19 11:53 Urine Color Yellow 12/24/19 12:13 Urine Appearance Slightly cloudy (CLEAR) 12/24/19 12:13 Urine pH 5.0 pH (5.0-7.0) 12/24/19 12:13 Ur Specific [place] 1.025 SP.GR. (1.005-1.010) 12/24/19 12:13 Urine Protein Negative mg/dL (NEGATIVE) 12/24/19 12:13 Urine Glucose (UA) Negative mg/dL (NEGATIVE) 12/24/19 12:13 Urine Ketones Negative mg/dL (NEGATIVE) 12/24/19 12:13 Urine Blood Negative /ul (NEGATIVE) 12/24/19 12:13 Urine Nitrate Positive (NEGATIVE) H 12/24/19 12:13 Urine Bilirubin Negative mg/dl (NEGATIVE) 12/24/19 12:13 Urine Urobilinogen Normal EU/dl (NORMAL) 12/24/19 12:13 Ur Leukocyte Esterase 100 /ul (NEGATIVE) H 12/24/19 12:13 Urine RBC None seen /hpf (0-5) 12/24/19 12:13 Urine WBC 25-50 /hpf (0-5) H 12/24/19 12:13 Ur Epithelial Cells 0-5 /hpf (0-5) 12/24/19 12:13 Urine Bacteria 3+ (NONE) H 12/24/19 12:13 Urine Culture Comments Culture to follow 12/24/19 12:13 Stool Occult Blood Positive H 12/24/19 12:13 Assessment/Plan - Narrative Narrative: Luly is a 79 yo female with: 1) Upper GI Bleed - Melanotic stools. Hemoglobin initially 12, recheck has dropped to 10. Treated with IV protonix 40mg q12hr. INR at goal range, will hold initially until we can see how significant the GI bleeding is. Will admit to acute inpatient status as she will need treatment and monitoring for 2 midnights or more. Will monitor serial hemograms. 2) Right lumbar radicular symptoms - Prior xray showed degenerative disc disease of lumbar spine. Will treat with IV steroids and gabapentin, may need an MRI. She is a fall risk, will consult PT. - Assessment/Plan (1) Upper GI bleed Problem: Acute (2) Radicular pain of right lower extremity Problem: Acute (3) Lower extremity weakness Problem: Acute Qualifiers: Laterality: right Qualified Code(s): R29.898 - Other symptoms and signs involving the musculoskeletal system (4) Atrial fibrillation/flutter Problem: Chronic (5) Anticoagulant long-term use Problem: Chronic
[2019-12-25 00:17] LABS: Hematocrit 32.2 % (37.0-47.0); Hemoglobin 10.5 gm/dL (12.5-16.0); Mean Cell Volume 102.2 fl (78-100); Mean Corpuscular Hemoglobin 33.3 pg (27-31); Mean Corpuscular Hgb Conc 32.6 g/dl (32-36); Mean Platelet Volume 10.8 fl (8-12.5); Platelet Count 160 K/mm3 (150-450); Red Blood Count 3.15 M/mm3 (4.2-5.4); Red Cell Distribution Width 14.8 % (11.5-14.0); White Blood Count 8.1 K/mm3 (4.0-10.5)
[2019-12-25] MEDS: PANTOPRAZOLE SODIUM 40 MG in NORMAL SALINE 100 ML IV SCH ×3 (01:18→22:32)
[2019-12-25] MEDS: NORMAL SALINE 1,000 ML IV PRN ×3 (04:40→21:40)
[2019-12-25] MEDS ORDERED: GABAPENTIN 300 MG CAPSULE PO SCH (12:45)
[2019-12-25] MEDS: METHYLPREDNISOLONE SOD SUCC/PF 125 MG/2 ML VIAL IV SCH (12:59)
[2019-12-25] MEDS: LEVOFLOXACIN IN DEXTROSE 5 % 500 MG/100 ML BAG IV SCH (13:12)
[2019-12-25 13:30] LABS: Hematocrit 34.7 % (37.0-47.0); Hemoglobin 10.9 gm/dL (12.5-16.0); Mean Cell Volume 103.9 fl (78-100); Mean Corpuscular Hemoglobin 32.6 pg (27-31); Mean Corpuscular Hgb Conc 31.4 g/dl (32-36); Neutrophil % 78.5 % (42-75.0); Platelet Count 188 K/mm3 (150-450); Red Blood Count 3.34 M/mm3 (4.2-5.4); Red Cell Distribution Width 14.8 % (11.5-14.0); White Blood Count 11.4 K/mm3 (4.0-10.5)
[2019-12-25] MEDS ORDERED: LEVOFLOXACIN IN DEXTROSE 5 % 500 MG/100 ML BAG IV SCH (13:30)
[2019-12-25 13:40] LABS: Albumin * 3.1 gm/dl (3.4-5.0); Anion Gap 16.1 mmol/L (6.8-13.8); BUN/Creatinine Ratio 25.2 (9.0-21.6); Bilirubin, Total 0.5 mg/dL (0.0-1.1); Ca. Corrected For Albumin 9.2 mg/dL (8.4-10.2); Calcium * 8.8 mg/dL (7.9-10.9); Carbon Dioxide 25.6 mmol/L (24-32.6); Potassium 3.7 mmol/L (3.4-4.6); Total Protein 6.6 gm/dL (6.2-8.2)
[2019-12-25] MEDS: ACETAMINOPHEN 500 MG TABLET PO PRN ×2 (16:46→22:54)
[2019-12-25] MEDS: GABAPENTIN 300 MG CAPSULE PO SCH (21:03)
[2019-12-26] MEDS: NORMAL SALINE 1,000 ML IV PRN ×2 (06:01→18:03)
[2019-12-26] MEDS: GABAPENTIN 300 MG CAPSULE PO SCH ×3 (06:03→22:07)
[2019-12-26 06:37] LABS: Hematocrit 34.4 % (37.0-47.0); Hemoglobin 11.2 gm/dL (12.5-16.0); Mean Cell Volume 103.6 fl (78-100); Mean Corpuscular Hemoglobin 33.7 pg (27-31); Mean Corpuscular Hgb Conc 32.6 g/dl (32-36); Mean Platelet Volume 10.9 fl (8-12.5); Neutrophil # 7.5 K/mm3 (1.3-6.0); Neutrophil % 77.5 % (42-75.0); Platelet Count 184 K/mm3 (150-450); Red Blood Count 3.32 M/mm3 (4.2-5.4); Red Cell Distribution Width 14.7 % (11.5-14.0); White Blood Count 9.7 K/mm3 (4.0-10.5)
[2019-12-26 06:57] LABS: Anion Gap 12.5 mmol/L (6.8-13.8); BUN/Creatinine Ratio 27.2 (9.0-21.6); Bilirubin, Total 0.5 mg/dL (0.0-1.1); Ca. Corrected For Albumin 8.8 mg/dL (8.4-10.2); Calcium * 8.3 mg/dL (7.9-10.9); Carbon Dioxide 26.4 mmol/L (24-32.6); Potassium 3.9 mmol/L (3.4-4.6); Total Protein 6.5 gm/dL (6.2-8.2)
[2019-12-26] MEDS: METHYLPREDNISOLONE SOD SUCC/PF 125 MG/2 ML VIAL IV SCH (08:33)
[2019-12-26] MEDS: ACETAMINOPHEN 500 MG TABLET PO PRN (08:57)
[2019-12-26] MEDS: PANTOPRAZOLE SODIUM 40 MG in NORMAL SALINE 100 ML IV SCH ×2 (11:21→22:06)
[2019-12-26] MEDS: LEVOFLOXACIN IN DEXTROSE 5 % 500 MG/100 ML BAG IV SCH (13:59)
--- NOTE | 2019-12-26 23:16 | PN ---
Subjective - Date and Time Seen Date: 12/26/19 Time: 09:00 Subjective Narrative: No further bloody stools. Still having right leg pain and weakness. She was not able to participate significantly with PT due to right leg symptoms. They recommended SUSANA. MRI obtained of lumbar spine which does show significant Grade 2 spondylisthesis at L5S1 with bilateral neuroforaminal compromise r worse than L Objective - Vitals Vitals: Last Vital Signs Temp 36.9 C 12/26/19 18:45 Pulse 85 12/26/19 18:45 Resp 18 12/26/19 18:45 BP 158/86 H 12/26/19 18:45 Pulse Ox 98 12/26/19 18:45 - Abnormal Lab Findings Abnormal Lab Findings: Abnormal Lab Results 12/26/19 12/26/19 Range/Units 06:10 06:15 RBC 3.32 L (4.2-5.4) M/mm3 Hgb 11.2 L (12.5-16.0) gm/dL Hct 34.4 L (37.0-47.0) % MCV 103.6 H (78-100) fl MCH 33.7 H (27-31) pg RDW 14.7 H (11.5-14.0) % Immature Gran % (Auto) 0.80 H (0.001-0.429) % Immature Gran # (Auto) 0.08 H (0.000-0.0310) K/mm3 Neutrophils % 77.5 H (42-75.0) % Lymphocytes % 12.1 L (20-51) % Monocytes % 9.4 H (0.0-9) % Neutrophils # 7.5 H (1.3-6.0) K/mm3 Lymphocytes # 1.17 L (1.5-3.5) k/mm3 Sodium 144 H (132-142) mmol/L Plasma Sodium 144 H (130-142) mmol/L Chloride 109 H (97-106) mmol/L BUN 28 H (3-23) mg/dL Est GFR (Non-Af Amer) 55 L D (60-130) mL/min BUN/Creatinine Ratio 27.2 H (9.0-21.6) Random Glucose 124 H (70-110) mg/dL Albumin 3.0 L (3.4-5.0) gm/dl - Exam Constitutional: Present: Alert, Oriented x3, Cooperative ENT Exam: Present: hearing grossly normal Respiratory: Present: lungs clear, normal breath sounds, no respiratory distress Cardiovascular/Chest: Present: irregularly irregular Abdomen: Present: nontender, nondistended Skin Exam: Present: normal color, warm/dry, no cyanosis Assessment/Plan Plan Narrative: Unsafe for home discharge due to right LE radicular symptoms secondary to spondylolisthesis of L5S1 with neuroforaminal compromise. Will consult anesthesia but she is on anticoagulation due to atrial fibrillation. She may need to hold coumadin for the procedure. Will consult anesthesia for recommendations on SUSANA vs neuroforaminal injection and how long she needs to hold her coumadin. - Problems/Diagnosis (1) Upper GI bleed Problem: Resolved (2) Radicular pain of right lower extremity Problem: Acute (3) Lower extremity weakness Problem: Acute Qualifiers: Laterality: right Qualified Code(s): R29.898 - Other symptoms and signs involving the musculoskeletal system (4) Atrial fibrillation/flutter Problem: Chronic (5) Anticoagulant long-term use Problem: Chronic
[2019-12-27] MEDS: NORMAL SALINE 1,000 ML IV PRN ×3 (02:08→20:21)
[2019-12-27] MEDS: GABAPENTIN 300 MG CAPSULE PO SCH ×4 (05:10→21:08)
[2019-12-27 06:38] LABS: INR 1.6 INR (0.92-1.08); Prothrombin Time (Patient) 15.6 Seconds (9.1-10.7)
[2019-12-27 06:45] LABS: Albumin * 2.8 gm/dl (3.4-5.0); Anion Gap 13.9 mmol/L (6.8-13.8); BUN/Creatinine Ratio 22.3 (9.0-21.6); Bilirubin, Total 0.4 mg/dL (0.0-1.1); Ca. Corrected For Albumin 8.7 mg/dL (8.4-10.2); Calcium * 8.1 mg/dL (7.9-10.9); Carbon Dioxide 25.8 mmol/L (24-32.6); Potassium 3.7 mmol/L (3.4-4.6); Total Protein 5.6 gm/dL (6.2-8.2)
[2019-12-27 06:57] LABS: Hematocrit 35.3 % (37.0-47.0); Hemoglobin 11.3 gm/dL (12.5-16.0); Mean Cell Volume 104.1 fl (78-100); Mean Corpuscular Hemoglobin 33.3 pg (27-31); Mean Platelet Volume 10.6 fl (8-12.5); Neutrophil # 6.4 K/mm3 (1.3-6.0); Neutrophil % 71.1 % (42-75.0); Platelet Count 211 K/mm3 (150-450); Red Blood Count 3.39 M/mm3 (4.2-5.4)
[2019-12-27] MEDS: METHYLPREDNISOLONE SOD SUCC/PF 125 MG/2 ML VIAL IV SCH (09:08)
[2019-12-27] MEDS: PANTOPRAZOLE SODIUM 40 MG in NORMAL SALINE 100 ML IV SCH ×2 (10:14→22:51)
[2019-12-27] MEDS: LEVOFLOXACIN IN DEXTROSE 5 % 500 MG/100 ML BAG IV SCH (13:38)
[2019-12-27] MEDS: ACETAMINOPHEN 500 MG TABLET PO PRN (15:17)
[2019-12-27] MEDS: HYDROCHLOROTHIAZIDE 12.5 MG CAPSULE PO SCH (19:04)
[2019-12-27] MEDS: ATENOLOL 50 MG TABLET PO SCH (19:05)
[2019-12-27] MEDS: LOSARTAN POTASSIUM 50 MG TABLET PO SCH (19:06)
--- NOTE | 2019-12-27 23:20 | PN ---
Subjective - Date and Time Seen Date: 12/27/19 Time: 08:45 Subjective Narrative: Continues to have significant pain and weakness in right leg. MRI showed anterolisthesis at L5S1. Consulted anesthesia but unable to to do SUSANA today due to INR of 1.6. Coumadin is currently being held. Should be able to do SUSANA tomorrow. No more bloody stools. Objective - Vitals Vitals: Last Vital Signs Temp 36.8 C 12/27/19 19:13 Pulse 84 12/27/19 19:13 Resp 20 12/27/19 19:13 BP 177/94 H 12/27/19 19:13 Pulse Ox 96 12/27/19 19:13 - Abnormal Lab Findings Abnormal Lab Findings: Abnormal Lab Results 12/27/19 12/27/19 12/27/19 Range/Units 06:20 06:20 06:20 RBC 3.39 L (4.2-5.4) M/mm3 Hgb 11.3 L (12.5-16.0) gm/dL Hct 35.3 L (37.0-47.0) % MCV 104.1 H (78-100) fl MCH 33.3 H (27-31) pg RDW 15.0 H (11.5-14.0) % Immature Gran % (Auto) 1.00 H (0.001-0.429) % Immature Gran # (Auto) 0.09 H (0.000-0.0310) K/mm3 Lymphocytes % 15.6 L (20-51) % Monocytes % 11.5 H (0.0-9) % Neutrophils # 6.4 H (1.3-6.0) K/mm3 Lymphocytes # 1.41 L (1.5-3.5) k/mm3 PT 15.6 H (9.1-10.7) Seconds INR (Anticoag Therapy) 1.60 H (0.92-1.08) INR Sodium 146 H (132-142) mmol/L Plasma Sodium 146 H (130-142) mmol/L Chloride 110 H (97-106) mmol/L Anion Gap 13.9 H (6.8-13.8) mmol/L Est GFR (Non-Af Amer) 55 L (60-130) mL/min BUN/Creatinine Ratio 22.3 H (9.0-21.6) Random Glucose 116 H (70-110) mg/dL Total Protein 5.6 L (6.2-8.2) gm/dL Albumin 2.8 L (3.4-5.0) gm/dl - Exam Constitutional: Present: Alert, Oriented x3, Cooperative Respiratory: Present: lungs clear, normal breath sounds, no respiratory distress Cardiovascular/Chest: Present: irregularly irregular Abdomen: Present: Normal bowel sounds, soft, nontender, nondistended Neurologic: Present: alert, normal mood/affect, oriented x 3 Appearance: Present: appropriate appearance, appropriate insight, neat Assessment/Plan Plan Narrative: Continue to hold coumadin. If INR less than 1.5 tomorrow plan to get SUSANA of L5S1. Depending on how she does after procedure may be able to discharge to home. - Problems/Diagnosis (1) Upper GI bleed Problem: Resolved (2) Radicular pain of right lower extremity Problem: Acute (3) Lower extremity weakness Problem: Acute Qualifiers: Laterality: right Qualified Code(s): R29.898 - Other symptoms and signs involving the musculoskeletal system (4) Atrial fibrillation/flutter Problem: Chronic (5) Anticoagulant long-term use Problem: Chronic (6) UTI (urinary tract infection) Problem: Acute Qualifiers: Urinary tract infection type: site unspecified Hematuria presence: without hematuria Qualified Code(s): N39.0 - Urinary tract infection, site not specified
[2019-12-28] MEDS: NORMAL SALINE 1,000 ML IV PRN ×2 (04:38→12:13)
[2019-12-28] MEDS: GABAPENTIN 300 MG CAPSULE PO SCH ×2 (05:09→13:23)
[2019-12-28 07:37] LABS: Prothrombin Time (Patient) 12.6 Seconds (9.1-10.7)
[2019-12-28 07:40] LABS: INR 1.29 INR (0.92-1.08)
[2019-12-28 07:43] LABS: Albumin * 2.8 gm/dl (3.4-5.0); Anion Gap 12.5 mmol/L (6.8-13.8); BUN/Creatinine Ratio 20.2 (9.0-21.6); Bilirubin, Total 0.5 mg/dL (0.0-1.1); Ca. Corrected For Albumin 8.9 mg/dL (8.4-10.2); Calcium * 8.3 mg/dL (7.9-10.9); Carbon Dioxide 26.5 mmol/L (24-32.6); Total Protein 6.2 gm/dL (6.2-8.2)
[2019-12-28 08:01] LABS: Hematocrit 33.4 % (37.0-47.0); Hemoglobin 11.1 gm/dL (12.5-16.0); Mean Cell Volume 102.8 fl (78-100); Mean Corpuscular Hemoglobin 34.2 pg (27-31); Mean Corpuscular Hgb Conc 33.2 g/dl (32-36); Mean Platelet Volume 11.2 fl (8-12.5); NRBC# 0.2 k/mm3 (0-1); Neutrophil # 7.4 K/mm3 (1.3-6.0); Neutrophil % 75.5 % (42-75.0); Platelet Count 290 K/mm3 (150-450); Red Blood Count 3.25 M/mm3 (4.2-5.4); White Blood Count 9.8 K/mm3 (4.0-10.5)
[2019-12-28] MEDS: METHYLPREDNISOLONE SOD SUCC/PF 125 MG/2 ML VIAL IV SCH (08:03)
[2019-12-28] MEDS: LOSARTAN POTASSIUM 50 MG TABLET PO SCH (08:05)
[2019-12-28] MEDS: ATENOLOL 50 MG TABLET PO SCH (08:05)
[2019-12-28] MEDS: HYDROCHLOROTHIAZIDE 12.5 MG CAPSULE PO SCH (08:05)
[2019-12-28] MEDS: PANTOPRAZOLE SODIUM 40 MG in NORMAL SALINE 100 ML IV SCH (10:18)
--- NOTE | 2019-12-28 11:16 | ANES ---
Anesthesia Pre Procedure Eval Vitals/Labs: Last Vital Signs Temp 36.7 C 12/28/19 10:05 Pulse 93 12/28/19 10:05 Resp 20 12/28/19 10:05 BP 175/96 H 12/28/19 10:05 Pulse Ox 97 12/28/19 10:05 HOME MEDICATIONS RX: Simvastatin [Zocor] 10 mg PO HS #0 04/24/14 [Last Taken 12/23/19] RX: metFORMIN HCL [Glucophage] 850 mg PO TID #0 04/24/14 [Last Taken 12/23/19] RX: Vitamin E Acetate [Vitamin E] 450 unit PO TID 02/19/17 [Last Taken 12/23/19] gabapentin 300 mg capsule 600 mg PO BID cap 04/30/18 [Last Taken Unknown] warfarin 2 mg tablet 6 mg PO QDIPM 04/30/18 [Last Taken 12/23/19] RX: Calcium Carbonate/Vitamin D3 [Calcarb 600 With Vitamin D] 1 tab PO BID 06/09/19 [Last Taken 12/23/19] RX: Levothyroxine Sodium [Levo-T] 200 mcg PO DAILY 06/09/19 [Last Taken 12/23/19] RX: Magnesium Oxide [Mag-Ox 400] 400 mg PO DAILY 06/09/19 [Last Taken 12/23/19] RX: Sertraline HCl [Zoloft] 100 mg PO DAILY 06/09/19 [Last Taken 12/23/19] Atenolol [Tenormin] 50 mg PO DAILY 12/24/19 [Last Taken 12/23/19] Cinnamon Bark [Cinnamon] 1,000 mg PO BID 12/24/19 [Last Taken 12/23/19] Losartan/Hydrochlorothiazide [Losartan-Hctz 100-12.5 mg Tab] 1 ea PO DAILY 12/24/19 [Last Taken 12/23/19] RX: Alendronate Sodium 70 mg PO Q7D 12/24/19 [Last Taken 12/19/19] RX: Raine Root 550 mg PO DAILY 12/24/19 [Last Taken Unknown] RX: Zinc 50 mg PO DAILY 12/24/19 [Last Taken 12/23/19] Allergies/Adverse Reactions: Allergies Allergy/AdvReac Type Severity Reaction Status Date / Time penicillin G Allergy Mild Hives Verified 12/24/19 14:32 codeine [Codeine] AdvReac Mild Itching Verified 12/24/19 14:32 - Planned Procedure Planned Procedure: gi bleed, uti, fall risk Medication List Reviewed:: Yes Allergies Verified: Yes Medical History (Last Reviewed 12/28/19 @ 11:15 by Jose Solorzano CRNA) Atrial fibrillation Uses hearing aid Acquired hammer toe Bunion Diabetes mellitus, type II Onset Date: ~1989 Hyperlipidemia Hypertension Hypothyroidism Nail disease Onset Date: ~09/04/12 Neuropathy Onset Date: Unknown Plantar fascial fibromatosis Onset Date: ~09/09/12 Xerosis of skin Onset Date: ~09/04/12 feet Surgical History (Last Reviewed 12/28/19 @ 11:15 by Jose Solorzano CRNA) History of left knee replacement History of Fatty Tumor Removal Onset Date: ~1980 History of YAG laser capsulotomy of lens Onset Date: ~03/2005 Right 04/2006 Left History of adenoidectomy Onset Date: Unknown History of carpal tunnel release Onset Date: ~1994 Right History of cataract Onset Date: ~2000 Right 06/2001 Left 07/2001 History of cholecystectomy Onset Date: ~1982 History of colonoscopy Onset Date: ~01/14/12 WNL-Dr. Neri History of flexible sigmoidoscopy Onset Date: ~1998 Meyer-infrared coagulation of hemorrhoids done 04/1999 and 07/1999 History of knee replacement Onset Date: ~2003 Right 12/2003 Dr. Jones Left 2004 Dr. Chacon History of tonsillectomy Onset Date: Unknown Family History (Last Reviewed 12/28/19 @ 11:15 by Jose Solorzano CRNA) Brother Alive and well Sister Alive and well Father , age 89-natural causes Paralysis Mother , age 82 Cancer Esophageal CA Sister , age 63 Epilepsy Other Patient's sister is - Family Anesthesia History Family History:: no untoward family reactions to anesthesia - Airway/Neck/Teeth Within Normal Limits:: Yes Teeth Condition: intact Neck Exam: full range of motion Mallampatti Score: 2 Thyromental (T-M) distance: > 6 cm Mandibulo Hyoid distance: > 3 cm - Respiratory Respiratory Physical: lungs clear Smoking Status: Never smoker Sleep Apnea currently treated: No Sleep Apnea by current assessment: No - Cardiovascular Cardiac History: arrhythmia, hypertension Tolerate Activity: Poor Heart Sounds: Irregular - Anesthesia Assessment and Plan ASA Class: PS, III Anesthesia Type Plan: Epidural Planned difficult intubation/equipment available: No
[2019-12-28] MEDS ORDERED: DEXAMETHASONE SODIUM PHOSP/PF 10 MG/ML VIAL IJ ONE (11:43)
[2019-12-28] MEDS ORDERED: IOPAMIDOL 20 ML VIAL IJ ONE (11:48)
[2019-12-28] MEDS ORDERED: LIDOCAINE HCL/PF 5 ML VIAL IJ ONE (11:48)
--- NOTE | 2019-12-28 12:09 | ANES ---
Post Anesthesia Discharge - Transfer of Care Transfer of Care handoff given to nurse: Yes - Anesthesia Post Op Note Anesthesia Post Op Note: Care transferred to diagnostic medical sonographer
--- NOTE | 2019-12-28 12:10 | ANES ---
Post Anesthesia Assessment - Vital Signs Vitals: Last Vital Signs Temp 36.7 C 12/28/19 10:05 Pulse 93 12/28/19 10:05 Resp 20 12/28/19 10:05 BP 175/96 H 12/28/19 10:05 Pulse Ox 97 12/28/19 10:05 Airway Patency: Normal - Mental Status Level Of Consciousness: Awake - Pain Level Pain Score: 6 - N/V Assessment Nausea/Vomiting Presence: None Dehydration:: No
--- NOTE | 2019-12-28 12:16 | ANES ---
Anesthesia Procedure Note Procedure Note: ANESTHESIA PROCEDURE NOTE Date of Procedure: 12/28/2019 Time of procedure: 1145. Performed by: Michel Solorzano CRNA Assembly Operator: None. Preprocedure diagnosis: Radicular low back pain. Right transforaminal narrowing at L4-5. Bilateral transforaminal narrowing at L5-S1. Post procedure diagnosis: Same. Procedure: Epidural Steroid Injection at L5-S1. Indications: Radicular low back pain. Findings: See below. Details of the procedure: The patient was brought back to the OR room #4. The patient was then placed in the prone position. Back was prepped with DuraPrep. Patient was then draped in sterile fashion. Lidocaine 1% was infiltrated to the skin and subcutaneous tissues at the level of the L5-S1 interspace. The epidural space was identified using a 20-gauge Tuohy needle with [id number] technique and fluoroscopic guidance. Lateral x-ray was attempted to confirm needle placement. Inadequate images secondary to body habitus. AP x-ray was performed. 2 mL of Isovue 200 contrast dye was injected to confirm needle placement. Adequate spread of dye was noted in the epidural space. Dexamethasone 10 mg + 5 mL of 1% preservative-free lidocaine was administered to the epidural space after negative aspiration for blood and CSF. The Tuohy needle was removed intact. A Band-Aid was applied to the patient's back. The patient was then placed in a supine position for 5 minutes before returning to the ambulatory surgical unit. Total fluoroscopy time 37.7 seconds. Total dose 34.86 mGy. EBL: Minimal. Fluids: N/A. Specimen: N/A. Post procedure condition: The patient tolerated the procedure well. No complications were noted. Thank you for this consultation. Michel Solorzano CRNA
[2019-12-28] MEDS: LEVOFLOXACIN IN DEXTROSE 5 % 500 MG/100 ML BAG IV SCH (13:23)
--- NOTE | 2019-12-28 15:59 | DS ---
(1) Upper GI bleed Problem: Resolved (2) Radicular pain of right lower extremity Problem: Acute (3) Lower extremity weakness Problem: Acute Qualifiers: Laterality: right Qualified Code(s): R29.898 - Other symptoms and signs involving the musculoskeletal system (4) Atrial fibrillation/flutter Problem: Chronic (5) Anticoagulant long-term use Problem: Chronic (6) UTI (urinary tract infection) Problem: Acute Qualifiers: Urinary tract infection type: site unspecified Hematuria presence: without hematuria Qualified Code(s): N39.0 - Urinary tract infection, site not specified (7) Anterolisthesis Problem: Acute Date of Discharge:: 12/28/19 Hospital Course: Luly is a 79 yo female admitted for falls, right radicular pain and weakness, and GI bleed. She was admitted and placed on IV protonix 40mg q12hr, made NPO, Coumadin was raul, and had serial hemograms. Hemoglobin dropped initially from 12 to 10 but then stablized and began to improve. She stopped having black stools. PT was consulted but she was unable to safely ambulate. MRI was done showing Grade 2 anteriolisthesis of L5S1 with neuroforaminal compromise bilaterally with R worse than L. Anesthesia was consulted for potential SUSANA but INR was still too elevated to do the procedure. INR was rechecked the following day and had dropped below 1.5 and SUSANA was completed. She reports improve of symptoms. She feels able to be discharged to home today. She will have home health with therapies. Today's face to face visit was done with the need to set up home health. It is physically taxing for her to leave the home. She needs nursing for monitoring of GI bleeding symptoms, Coumadin and INR monitoring, and PT for strengthening. She will be continued on protonix for a month to help heal GI bleed. Procedures Performed: see notes below List Procedures: 12/28/19 - SUSANA L5S1 Results and Findings: Lab Pending Results 12/24/19 11:53: WBC 12.2 H, RBC 3.70 L, Hgb 12.4 L, Hct 37.7, MCV 101.9 H, MCH 33.5 H, MCHC 32.9, RDW 14.8 H, Plt Count 173, MPV 11.4, Immature Gran % (Auto) 0.50 H, Immature Gran # (Auto) 0.06 H, Neutrophils % 80.6 H, Lymphocytes % 8.5 L, Monocytes % 9.2 H, Eosinophils % 1.0, Basophils % 0.2, Nucleated RBC % 0.0, Neutrophils # 9.8 H, Lymphocytes # 1.04 L, Monocytes # 1.1 H, Eosinophils # 0.1, Absolute Basophils 0.0 12/24/19 11:53: PT 20.8 H, INR (Anticoag Therapy) 2.16 H 12/24/19 11:53: Sodium 141, Plasma Sodium 142, Potassium 4.1, Chloride 104, Carbon Dioxide 24.7, Anion Gap 16.4 H, BUN 54 H D, Creatinine 1.42 H, Est GFR (Non-Af Amer) 38 L, BUN/Creatinine Ratio 38.0 H, Random Glucose 146 H, Calcium 9.8, Calcium Adj for Albumin 9.6, Total Bilirubin 1.0, AST 40, ALT 22, Alkaline Phosphatase 80, Total Protein 7.6, Albumin 3.8 12/24/19 12:13: Stool Occult Blood Positive H 12/24/19 12:13: Urine Color Yellow, Urine Appearance Slightly cloudy, Urine pH 5.0, Ur Specific [place] 1.025, Urine Protein Negative, Urine Glucose (UA) Negative, Urine Ketones Negative, Urine Blood Negative, Urine Nitrate Positive H, Urine Bilirubin Negative, Urine Urobilinogen Normal, Ur Leukocyte Esterase 100 H, Urine RBC None seen, Urine WBC 25-50 H, Ur Epithelial Cells 0-5, Urine Bacteria 3+ H, Urine Culture Comments Culture to follow 12/25/19 00:10: WBC 8.1 D, RBC 3.15 L, Hgb 10.5 L, Hct 32.2 L, MCV 102.2 H, MCH 33.3 H, MCHC 32.6, RDW 14.8 H, Plt Count 160, MPV 10.8 12/25/19 13:17: WBC 11.4 H D, RBC 3.34 L, Hgb 10.9 L, Hct 34.7 L, MCV 103.9 H, MCH 32.6 H, MCHC 31.4 L, RDW 14.8 H, Plt Count 188, MPV 11.0, Immature Gran % (Auto) 0.70 H, Immature Gran # (Auto) 0.08 H, Neutrophils % 78.5 H, Lymphocytes % 10.2 L, Monocytes % 9.6 H, Eosinophils % 0.8, Basophils % 0.2, Nucleated RBC % 0.0, Neutrophils # 9.0 H, Lymphocytes # 1.16 L, Monocytes # 1.1 H, Eosinophils # 0.1, Absolute Basophils 0.0 12/25/19 13:17: Sodium 145 H, Plasma Sodium 146 H, Potassium 3.7, Chloride 107 H, Carbon Dioxide 25.6, Anion Gap 16.1 H, BUN 32 H, Creatinine 1.27, Est GFR (Non-Af Amer) 43 L, BUN/Creatinine Ratio 25.2 H, Random Glucose 165 H, Calcium 8.8, Calcium Adj for Albumin 9.2, Total Bilirubin 0.5, AST 31, ALT 22, Alkaline Phosphatase 71, Total Protein 6.6, Albumin 3.1 L 12/26/19 06:10: Sodium 144 H, Plasma Sodium 144 H, Potassium 3.9, Chloride 109 H, Carbon Dioxide 26.4, Anion Gap 12.5, BUN 28 H, Creatinine 1.03, Est GFR (Non- Af Amer) 55 L D, BUN/Creatinine Ratio 27.2 H, Random Glucose 124 H, Calcium 8.3, Calcium Adj for Albumin 8.8, Total Bilirubin 0.5, AST 32, ALT 20, Alkaline Phosphatase 74, Total Protein 6.5, Albumin 3.0 L 12/26/19 06:15: WBC 9.7, RBC 3.32 L, Hgb 11.2 L, Hct 34.4 L, MCV 103.6 H, MCH 33.7 H, MCHC 32.6, RDW 14.7 H, Plt Count 184, MPV 10.9, Immature Gran % (Auto) 0.80 H, Immature Gran # (Auto) 0.08 H, Neutrophils % 77.5 H, Lymphocytes % 12.1 L, Monocytes % 9.4 H, Eosinophils % 0.1, Basophils % 0.1, Nucleated RBC % 0.0, Neutrophils # 7.5 H, Lymphocytes # 1.17 L, Monocytes # 0.9, Eosinophils # 0.0, Absolute Basophils 0.0 12/27/19 06:20: WBC 9.0, RBC 3.39 L, Hgb 11.3 L, Hct 35.3 L, MCV 104.1 H, MCH 33.3 H, MCHC 32.0, RDW 15.0 H, Plt Count 211, MPV 10.6, Immature Gran % (Auto) 1.00 H, Immature Gran # (Auto) 0.09 H, Neutrophils % 71.1, Lymphocytes % 15.6 L, Monocytes % 11.5 H, Eosinophils % 0.6, Basophils % 0.2, Nucleated RBC % 0.0, Neutrophils # 6.4 H, Lymphocytes # 1.41 L, Monocytes # 1.0, Eosinophils # 0.1, Absolute Basophils 0.0 12/27/19 06:20: PT 15.6 H, INR (Anticoag Therapy) 1.60 H 12/27/19 06:20: Sodium 146 H, Plasma Sodium 146 H, Potassium 3.7, Chloride 110 H, Carbon Dioxide 25.8, Anion Gap 13.9 H, BUN 23, Creatinine 1.03, Est GFR (Non- Af Amer) 55 L, BUN/Creatinine Ratio 22.3 H, Random Glucose 116 H, Calcium 8.1, Calcium Adj for Albumin 8.7, Total Bilirubin 0.4, AST 33, ALT 28, Alkaline Phosphatase 59, Total Protein 5.6 L, Albumin 2.8 L 12/28/19 07:20: WBC 9.8, RBC 3.25 L, Hgb 11.1 L, Hct 33.4 L, MCV 102.8 H, MCH 34.2 H, MCHC 33.2, RDW 15.0 H, Plt Count 290, MPV 11.2, Immature Gran % (Auto) 1.10 H, Immature Gran # (Auto) 0.11 H, Neutrophils % 75.5 H, Lymphocytes % 11.2 L, Monocytes % 11.4 H, Eosinophils % 0.6, Basophils % 0.2, Nucleated RBC % 0.2, Neutrophils # 7.4 H, Lymphocytes # 1.10 L, Monocytes # 1.1 H, Eosinophils # 0.1, Absolute Basophils 0.0 12/28/19 07:20: PT 12.6 H, INR (Anticoag Therapy) 1.29 H 12/28/19 07:20: Sodium 143 H, Plasma Sodium 143 H, Potassium 4.0, Chloride 108 H, Carbon Dioxide 26.5, Anion Gap 12.5, BUN 20, Creatinine 0.99, Est GFR (Non-Af Amer) 58 L, BUN/Creatinine Ratio 20.2, Random Glucose 114 H, Calcium 8.3, Calcium Adj for Albumin 8.9, Total Bilirubin 0.5, AST 41, ALT 35, Alkaline Phosphatase 74, Total Protein 6.2, Albumin 2.8 L Discharge Location: Home Disposition: Home Health Service Condition: Good Discharge Activity: Activity as tolerated Discharge Diet: General/regular food Referrals: Janis Mccall, [employer] [Primary Care Provider] - One Week Problem Oriented Discharge Instructions to Patient/Family: Upper Gastrointestinal Bleeding, Radicular Pain Additional Patient Instructions (free text): [facility] new. Please call report and fax orders upon discharge. Prescriptions (Any new or edited meds): Pantoprazole Sodium [Protonix] 40 mg PO DAILY #30 tab Transmission Status: Pending to [place] Complete Home Medications List: Complete Home Medication List: Simvastatin [Zocor] 10 mg PO HS #0 04/24/14 metFORMIN HCL [Glucophage] 850 mg PO TID #0 04/24/14 Vitamin E Acetate [Vitamin E] 450 unit PO TID 02/19/17 gabapentin 300 mg capsule 600 mg PO BID cap 04/30/18 warfarin 2 mg tablet 6 mg PO QDIPM 04/30/18 Calcium Carbonate/Vitamin D3 [Calcarb 600 With Vitamin D] 1 tab PO BID 06/09/19 Levothyroxine Sodium [Levo-T] 200 mcg PO DAILY 06/09/19 Magnesium Oxide [Mag-Ox 400] 400 mg PO DAILY 06/09/19 Sertraline HCl [Zoloft] 100 mg PO DAILY 06/09/19 Alendronate Sodium 70 mg PO Q7D 12/24/19 Atenolol [Tenormin] 50 mg PO DAILY 12/24/19 Cinnamon Bark [Cinnamon] 1,000 mg PO BID 12/24/19 Raine Root 550 mg PO DAILY 12/24/19 Losartan/Hydrochlorothiazide [Losartan-Hctz 100-12.5 mg Tab] 1 ea PO DAILY 12/24/19 Zinc 50 mg PO DAILY 12/24/19 Acetaminophen [Tylenol] 1,000 mg PO Q6H PRN tablet 12/28/19 Atenolol [Tenormin] 50 mg PO DAILY tablet 05/13/20 Pantoprazole Sodium [Protonix] 40 mg PO DAILY #30 tab 12/28/19 Forms: Patient Portal Registration
[2019-12-28 16:44] VITALS: BP 160/92
== END 2019-12-28 17:45 | disposition home health service (06) | DRG 378 ==
LOC: ER 10:26 → MS 13:15
PROVIDERS: ADMIT Family Medicine; ATTEND Family Medicine
DX: K92.2 Gastrointestinal hemorrhage, unspecified; R53.81 Other malaise; N39.0 Urinary tract infection, site not specified; E11.42 Type 2 diabetes mellitus with diabetic polyneuropathy; Z79.01 Long term (current) use of anticoagulants; M54.17 Radiculopathy, lumbosacral region; I48.20 Chronic atrial fibrillation, unspecified; Z91.81 History of falling; M43.17 Spondylolisthesis, lumbosacral region; I10 Essential (primary) hypertension; B96.20 Unspecified Escherichia coli [E. coli] as the cause of diseases classified elsewhere
CPT/HCPCS: 36415; 72148; 80053; 81001; 82272; 85025; 85027; 85610; 87086; 96365; 96367; 96375; 97110; 97116; 97161; 97530; 99285; A9698

== ENCOUNTER 2019-12-31 15:09 | Observation (INO) ==
[2019-12-31] MEDS ORDERED: NORMAL SALINE 1,000 ML IV ONE (15:24)
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
[2019-12-31 15:43] LABS: Hematocrit 35.3 % (37.0-47.0); Hemoglobin 11.7 gm/dL (12.5-16.0); Mean Cell Volume 101.7 fl (78-100); Mean Corpuscular Hemoglobin 33.7 pg (27-31); Mean Corpuscular Hgb Conc 33.1 g/dl (32-36); Mean Platelet Volume 10.2 fl (8-12.5); Neutrophil # 10.7 K/mm3 (1.3-6.0); Neutrophil % 78.6 % (42-75.0); Platelet Count 229 K/mm3 (150-450); Red Blood Count 3.47 M/mm3 (4.2-5.4); White Blood Count 13.7 K/mm3 (4.0-10.5)
[2019-12-31 15:55] LABS: Prothrombin Time (Patient) 13.1 Seconds (9.1-10.7)
[2019-12-31 16:05] LABS: ALT 29 U/L (19-67); AST 25 U/L (0-48); Alkaline Phosphatase * 73 U/L (50-170); Anion Gap 15.8 mmol/L (6.8-13.8); BNP * 2171 pg/mL (5-550); BUN/Creatinine Ratio 25.7 (9.0-21.6); Bilirubin, Total 0.8 mg/dL (0.0-1.1); Blood Urea Nitrogen 45 mg/dL (3-23); Ca. Corrected For Albumin 9.3 mg/dL (8.4-10.2); Calcium * 8.8 mg/dL (7.9-10.9); Chloride 105 mmol/L (97-106); Glucose * 145 mg/dL (70-110); Potassium 3.8 mmol/L (3.4-4.6); Sodium 142 mmol/L (132-142); TSH * 3.118 uIU/mL (0.358-3.74); Total Protein 6.2 gm/dL (6.2-8.2); Troponin I Less than 0.017 ng/mL (0.00-0.10)
[2019-12-31 16:10] LABS: INR 1.34 INR (0.92-1.08); Partial Thrombolplastin Time 27.3 Seconds (24-32)
[2019-12-31] MEDS ORDERED: FUROSEMIDE 10 MG/ML VIAL IV ONE (16:40)
[2019-12-31 16:42] LABS: Urine Appearance Clear (CLEAR); Urine Bilirubin Negative (NEGATIVE); Urine Blood Negative /ul (NEGATIVE); Urine Color Yellow; Urine Ketone Negative (NEGATIVE)
[2019-12-31 16:43] LABS: Urine Bacteria None Seen; Urine Nitrite Negative (NEGATIVE); Urine Protein Negative (NEGATIVE); Urine RBC None Seen /hpf (0-5); Urine Specific Gravity 1.005 SP.GR. (1.005-1.010); Urine Urobilinogen Normal (NORMAL); Urine WBC None Seen /hpf (0-5); Urine pH 5.5 pH (5.0-7.0)
[2019-12-31] MEDS ORDERED: WARFARIN SODIUM 1 MG TABLET ONE (21:45)
[2019-12-31] MEDS ORDERED: WARFARIN SODIUM 5 MG TABLET ONE (21:45)
[2019-12-31] MEDS: GABAPENTIN 600 MG TABLET PO SCH (21:49)
[2019-12-31] MEDS: WARFARIN SODIUM 6 MG TABLET PO SCH (21:49)
[2019-12-31] MEDS: traMADol HCL 50 MG TABLET PO PRN (22:01)
[2019-12-31] MEDS ORDERED: ACETAMINOPHEN 500 MG TABLET PO PRN (22:56)
--- NOTE | 2019-12-31 23:20 | HP ---
Chief Complaint - Chief Complaint Date of Service: 12/31/19 Time of Service: 23:04 Chief Complaint: Falls, low back pain, right leg pain History of Present Illness: Luly is a 79 yo female recently admitted for GI bleed and right radi cular pain secondary to L5S1 anteriolisthesis. She had SUSANA of L5S1 and had improvement of symptoms and was discharged to home. Her GI bleed had resolved with medical treatment. She is on coumadin for anticoagulation for atrial fibrillation. Since being home she has fallen multiple times with multiple trips of EMT out to her house to help her up. She was having severe pain today and was transported to the ER. She was given Fentanyl during route. In the ER she was drowsy and a little confused. Her creatinine is elevated at 1.7 with a baseline near 1.0. WBC was elevated at 13. Initial lactic acid was elevated at 2.5. Repeat is back down to normal. Urine studies normal. Chest xray shows no acute change. ER is unable to safely discharge to home due to her hypersomnolence and frequent falls with no care system at home as she takes care of her with history of stroke who is unable to care for her. Medical History (Last Reviewed 12/31/19 @ 19:31 by Destinee Arellano RN) Atrial fibrillation Uses hearing aid Acquired hammer toe Bunion Diabetes mellitus, type II Onset Date: ~1989 Hyperlipidemia Hypertension Hypothyroidism Nail disease Onset Date: ~09/04/12 Neuropathy Onset Date: Unknown Plantar fascial fibromatosis Onset Date: ~09/09/12 Xerosis of skin Onset Date: ~09/04/12 feet Surgical History: Surgical History (Last Reviewed 12/31/19 @ 19:31 by Destinee Arellano RN) History of left knee replacement History of Fatty Tumor Removal Onset Date: ~1980 History of YAG laser capsulotomy of lens Onset Date: ~03/2005 Right 04/2006 Left History of adenoidectomy Onset Date: Unknown History of carpal tunnel release Onset Date: ~1994 Right History of cataract Onset Date: ~2000 Right 06/2001 Left 07/2001 History of cholecystectomy Onset Date: ~1982 History of colonoscopy Onset Date: ~01/14/12 [facility]-Dr. Neri History of flexible sigmoidoscopy Onset Date: ~1998 Meyer-infrared coagulation of hemorrhoids done 04/1999 and 07/1999 History of knee replacement Onset Date: ~2003 Right 12/2003 Dr. Jones Left 2004 Dr. Chacon History of tonsillectomy Onset Date: Unknown Family History: Family History (Last Reviewed 12/31/19 @ 15:23 by Rahel Mclaughlin RN) Brother Alive and well Sister Alive and well Father , age 89-natural causes Paralysis Mother , age 82 Cancer Esophageal CA Sister , age 63 Epilepsy Other Patient's sister is Social History: (Last Reviewed 12/31/19 @ 19:31 by Destinee Arellano RN) Social History: Marital status: household members: spouse current occupational status: retired Highest education level completed: high school graduate Service: No Tobacco: Smoking Status: Never smoker Alcohol: alcohol intake: never Substance Use: substance use type: does not use Dietary Habits: caffeine: Yes Review Of Systems (GEN) - Review of Systems Generalized/Overall Review: Present: Weakness. Absent: Chills, Fever EENTM: Present: No Symptoms Reported Respiratory: Absent: Cough, Shortness of Breath Cardiac: Absent: Chest Pain, Edema, Palpitations Abdominal: Absent: Nausea, Vomiting Genitourinary: Present: No Symptoms Reported Musculoskeletal: Present: Back Pain, Other - Right leg pain Neurological: Present: Weakness. Absent: Tremors Skin: Present: No Symptoms Reported Endocrine: Present: No Symptoms Reported Immunizations: IMMUNIZATION HX Immunizations Up to Date Yes History of Influenza Vaccine Yes Hx Pneumococcal Vaccination Yes Allergies/Adverse Reactions: Allergies Allergy/AdvReac Type Severity Reaction Status Date / Time penicillin G Allergy Mild Hives Verified 12/31/19 19:33 codeine [Codeine] AdvReac Mild Itching Verified 12/31/19 19:33 Home Medications: HOME MEDICATIONS Simvastatin [Zocor] 10 mg PO HS #0 04/24/14 [Last Taken 12/23/19] metFORMIN HCL [Glucophage] 850 mg PO TID #0 04/24/14 [Last Taken 12/23/19] Vitamin E Acetate [Vitamin E] 450 unit PO TID 02/19/17 [Last Taken 12/23/19] gabapentin 300 mg capsule 600 mg PO BID cap 04/30/18 [Last Taken Unknown] warfarin 2 mg tablet 6 mg PO QDIPM 04/30/18 [Last Taken 12/23/19] Calcium Carbonate/Vitamin D3 [Calcarb 600 With Vitamin D] 1 tab PO BID 06/09/19 [Last Taken 12/23/19] Levothyroxine Sodium [Levo-T] 200 mcg PO DAILY 06/09/19 [Last Taken 12/23/19] Magnesium Oxide [Mag-Ox 400] 400 mg PO DAILY 06/09/19 [Last Taken 12/23/19] Sertraline HCl [Zoloft] 100 mg PO DAILY 06/09/19 [Last Taken 12/23/19] Alendronate Sodium 70 mg PO Q7D 12/24/19 [Last Taken 12/19/19] Atenolol [Tenormin] 50 mg PO DAILY 12/24/19 [Last Taken 12/23/19] Cinnamon Bark [Cinnamon] 1,000 mg PO BID 12/24/19 [Last Taken 12/23/19] Raine Root 550 mg PO DAILY 12/24/19 [Last Taken Unknown] Losartan/Hydrochlorothiazide [Losartan-Hctz 100-12.5 mg Tab] 1 ea PO DAILY 12/24/19 [Last Taken 12/23/19] Zinc 50 mg PO DAILY 12/24/19 [Last Taken 12/23/19] Acetaminophen [Tylenol] 1,000 mg PO Q6H PRN tab 12/28/19 [Last Taken Unknown] Atenolol [Tenormin] 50 mg PO DAILY tab 12/28/19 [Last Taken Unknown] Pantoprazole Sodium [Protonix] 40 mg PO DAILY #30 tab 12/28/19 [Last Taken Unknown] Exam - Exam Vital Signs: Vital Signs - Last Taken Temp 36.4 C 12/31/19 22:15 Pulse 68 12/31/19 22:15 Resp 18 12/31/19 22:15 BP 119/65 12/31/19 22:15 Pulse Ox 96 12/31/19 22:15 Constitutional: Present: Somnolent, Other - Awakens to verbal but falls back asleep easily. She is able to hold a brief conversation if continuously engaged.. Absent: Oriented x3 Eye Exam: bilateral eye: normal inspection Respiratory: Present: lungs clear, normal breath sounds, no respiratory distress Cardiovascular/Chest: Present: irregularly irregular Peripheral Pulses: radial (R): 2+, radial (L): 2+ Abdomen: Present: Normal bowel sounds, soft, nontender Skin Exam: Present: normal color, warm/dry, no cyanosis Diagnostic Studies: Abnormal Lab Results 12/31/19 12/31/19 12/31/19 Range/Units 15:36 15:36 15:36 WBC 13.7 H (4.0-10.5) K/mm3 RBC 3.47 L (4.2-5.4) M/mm3 Hgb 11.7 L (12.5-16.0) gm/dL Hct 35.3 L (37.0-47.0) % MCV 101.7 H (78-100) fl MCH 33.7 H (27-31) pg RDW 15.0 H (11.5-14.0) % Immature Gran % (Auto) 1.50 H (0.001-0.429) % Immature Gran # (Auto) 0.21 H (0.000-0.0310) K/mm3 Neutrophils % 78.6 H (42-75.0) % Lymphocytes % 7.9 L (20-51) % Monocytes % 11.1 H (0.0-9) % Neutrophils # 10.7 H (1.3-6.0) K/mm3 Lymphocytes # 1.08 L (1.5-3.5) k/mm3 Monocytes # 1.5 H (0.0-1.0) k/mm3 PT (9.1-10.7) Seconds INR (Anticoag Therapy) (0.92-1.08) INR Plasma Sodium 143 H (130-142) mmol/L Anion Gap 15.8 H (6.8-13.8) mmol/L BUN 45 H D (3-23) mg/dL Creatinine 1.75 H D (0.4-1.4) mg/dL Est GFR (Non-Af Amer) 30 L D (60-130) mL/min BUN/Creatinine Ratio 25.7 H (9.0-21.6) Random Glucose 145 H (70-110) mg/dL Lactic Acid, Venous 2.5 H* (0.4-2.0) mmol/L B-Natriuretic Peptide 2171 H (5-550) pg/mL Albumin 3.0 L (3.4-5.0) gm/dl 12/31/19 Range/Units 15:36 WBC (4.0-10.5) K/mm3 RBC (4.2-5.4) M/mm3 Hgb (12.5-16.0) gm/dL Hct (37.0-47.0) % MCV (78-100) fl MCH (27-31) pg RDW (11.5-14.0) % Immature Gran % (Auto) (0.001-0.429) % Immature Gran # (Auto) (0.000-0.0310) K/mm3 Neutrophils % (42-75.0) % Lymphocytes % (20-51) % Monocytes % (0.0-9) % Neutrophils # (1.3-6.0) K/mm3 Lymphocytes # (1.5-3.5) k/mm3 Monocytes # (0.0-1.0) k/mm3 PT 13.1 H (9.1-10.7) Seconds INR (Anticoag Therapy) 1.34 H (0.92-1.08) INR Plasma Sodium (130-142) mmol/L Anion Gap (6.8-13.8) mmol/L BUN (3-23) mg/dL Creatinine (0.4-1.4) mg/dL Est GFR (Non-Af Amer) (60-130) mL/min BUN/Creatinine Ratio (9.0-21.6) Random Glucose (70-110) mg/dL Lactic Acid, Venous (0.4-2.0) mmol/L B-Natriuretic Peptide (5-550) pg/mL Albumin (3.4-5.0) gm/dl Laboratory Results WBC 13.7 K/mm3 (4.0-10.5) H 12/31/19 15:36 RBC 3.47 M/mm3 (4.2-5.4) L 12/31/19 15:36 Hgb 11.7 gm/dL (12.5-16.0) L 12/31/19 15:36 Hct 35.3 % (37.0-47.0) L 12/31/19 15:36 MCV 101.7 fl (78-100) H 12/31/19 15:36 MCH 33.7 pg (27-31) H 12/31/19 15:36 MCHC 33.1 g/dl (32-36) 12/31/19 15:36 RDW 15.0 % (11.5-14.0) H 12/31/19 15:36 Plt Count 229 K/mm3 (150-450) 12/31/19 15:36 MPV 10.2 fl (8-12.5) 12/31/19 15:36 Immature Gran % (Auto) 1.50 % (0.001-0.429) H 12/31/19 15:36 Immature Gran # (Auto) 0.21 K/mm3 (0.000-0.0310) H 12/31/19 15:36 Neutrophils % 78.6 % (42-75.0) H 12/31/19 15:36 Lymphocytes % 7.9 % (20-51) L 12/31/19 15:36 Monocytes % 11.1 % (0.0-9) H 12/31/19 15:36 Eosinophils % 0.8 % (0.0-3.0) 12/31/19 15:36 Basophils % 0.1 % (0.0-1.0) 12/31/19 15:36 Nucleated RBC % 0.0 k/mm3 (0-1) 12/31/19 15:36 Neutrophils # 10.7 K/mm3 (1.3-6.0) H 12/31/19 15:36 Lymphocytes # 1.08 k/mm3 (1.5-3.5) L 12/31/19 15:36 Monocytes # 1.5 k/mm3 (0.0-1.0) H 12/31/19 15:36 Eosinophils # 0.1 k/mm3 (0.0-0.7) 12/31/19 15:36 Absolute Basophils 0.0 k/mm3 (0.0-0.1) 12/31/19 15:36 PT 13.1 Seconds (9.1-10.7) H 12/31/19 15:36 INR (Anticoag Therapy) 1.34 INR (0.92-1.08) H 12/31/19 15:36 PTT (Buffy) 27.3 Seconds (24-32) 12/31/19 15:36 Sodium 142 mmol/L (132-142) 12/31/19 15:36 Plasma Sodium 143 mmol/L (130-142) H 12/31/19 15:36 Potassium 3.8 mmol/L (3.4-4.6) 12/31/19 15:36 Chloride 105 mmol/L (97-106) 12/31/19 15:36 Carbon Dioxide 25.0 mmol/L (24-32.6) 12/31/19 15:36 Anion Gap 15.8 mmol/L (6.8-13.8) H 12/31/19 15:36 BUN 45 mg/dL (3-23) H D 12/31/19 15:36 Creatinine 1.75 mg/dL (0.4-1.4) H D 12/31/19 15:36 Est GFR (Non-Af Amer) 30 mL/min (60-130) L D 12/31/19 15:36 BUN/Creatinine Ratio 25.7 (9.0-21.6) H 12/31/19 15:36 Random Glucose 145 mg/dL (70-110) H 12/31/19 15:36 Lactic Acid, Venous 1.9 mmol/L (0.4-2.0) 12/31/19 18:18 Calcium 8.8 mg/dL (7.9-10.9) 12/31/19 15:36 Calcium Adj for Albumin 9.3 mg/dL (8.4-10.2) 12/31/19 15:36 Total Bilirubin 0.8 mg/dL (0.0-1.1) 12/31/19 15:36 AST 25 U/L (0-48) 12/31/19 15:36 ALT 29 U/L (19-67) 12/31/19 15:36 Alkaline Phosphatase 73 U/L (50-170) 12/31/19 15:36 Troponin I Less than 0.017 ng/mL (0.00-0.10) 12/31/19 15:36 B-Natriuretic Peptide 2171 pg/mL (5-550) H 12/31/19 15:36 Total Protein 6.2 gm/dL (6.2-8.2) 12/31/19 15:36 Albumin 3.0 gm/dl (3.4-5.0) L 12/31/19 15:36 TSH 3.118 uIU/mL (0.358-3.74) 12/31/19 15:36 Urine Color Yellow 12/31/19 16:36 Urine Appearance Clear (CLEAR) 12/31/19 16:36 Urine pH 5.5 pH (5.0-7.0) 12/31/19 16:36 Ur Specific Ashby 1.005 SP.GR. (1.005-1.010) 12/31/19 16:36 Urine Protein Negative mg/dL (NEGATIVE) 12/31/19 16:36 Urine Glucose (UA) Negative mg/dL (NEGATIVE) 12/31/19 16:36 Urine Ketones Negative mg/dL (NEGATIVE) 12/31/19 16:36 Urine Blood Negative /ul (NEGATIVE) 12/31/19 16:36 Urine Nitrate Negative (NEGATIVE) 12/31/19 16:36 Urine Bilirubin Negative mg/dl (NEGATIVE) 12/31/19 16:36 Urine Urobilinogen Normal EU/dl (NORMAL) 12/31/19 16:36 Ur Leukocyte Esterase Negative /ul (NEGATIVE) 12/31/19 16:36 Urine RBC None seen /hpf (0-5) 12/31/19 16:36 Urine WBC None seen /hpf (0-5) 12/31/19 16:36 Ur Epithelial Cells None seen /hpf (0-5) 12/31/19 16:36 Urine Bacteria None seen (NONE) 12/31/19 16:36 Urine Culture Comments No culture indicated 12/31/19 16:36 Assessment/Plan - Narrative Narrative: Luly is a 79yo female with: 1) Acute Renal Failure with Creatinine of 1.7 with baseline of 1.0 - Will treat with gentle IV fluids. I suspect she is moderately dehydrated from being unable to care for herself at home. She has had multiple falls and was helped up on multiple occasions, there could be the potential for rhabdomyolysis. Will check Total CK. 2) Acute delirum secondary to fentanyl. Will treat with fluids and time and expect that her sedation and confusion will clear. 3) Right radicular symptoms secondary to L5S1 anteriolisthesis with neuralforaminal compromise. She has already had SUSANA. She needs continued therapy and is unsafe at home. She needs nursing facility placement. 4) Will admit to observation for now. If she has worsening renal failure or evidence of rhabdomyolysis she will meet for inpatient criteria and need further inpatient treatment. Will monitor labs and consult PT. Will work with case management to get her Skilled placement. - Assessment/Plan (1) Acute renal failure Problem: Acute Qualifiers: Acute renal failure type: unspecified Qualified Code(s): N17.9 - Acute kidney failure, unspecified (2) Delirium, drug-induced Problem: Acute (3) Radicular pain of right lower extremity Problem: Acute (4) Anterolisthesis Problem: Acute (5) Atrial fibrillation/flutter Problem: Chronic
[2020-01-01] MEDS ORDERED: NORMAL SALINE 1,000 ML IV ONE ×2 (07:13→08:31)
[2020-01-01] MEDS: LEVOTHYROXINE SODIUM 100 MCG TABLET PO SCH (07:29)
[2020-01-01] MEDS ORDERED: GABAPENTIN 300 MG CAPSULE PO SCH (09:00)
[2020-01-01 09:15] LABS: Hematocrit 30.3 % (37.0-47.0); Hemoglobin 9.9 gm/dL (12.5-16.0); Mean Cell Volume 102.4 fl (78-100); Mean Corpuscular Hemoglobin 33.4 pg (27-31); Mean Corpuscular Hgb Conc 32.7 g/dl (32-36); Mean Platelet Volume 10.7 fl (8-12.5); Neutrophil # 9.5 K/mm3 (1.3-6.0); Neutrophil % 77.6 % (42-75.0); Platelet Count 163 K/mm3 (150-450); Red Blood Count 2.96 M/mm3 (4.2-5.4); Red Cell Distribution Width 15.1 % (11.5-14.0); White Blood Count 12.2 K/mm3 (4.0-10.5)
[2020-01-01 09:33] LABS: Albumin * 2.2 gm/dl (3.4-5.0); Anion Gap 13.6 mmol/L (6.8-13.8); BUN/Creatinine Ratio 24.8 (9.0-21.6); Bilirubin, Total 0.8 mg/dL (0.0-1.1); Ca. Corrected For Albumin 8.9 mg/dL (8.4-10.2); Calcium * 7.8 mg/dL (7.9-10.9); Carbon Dioxide 24.2 mmol/L (24-32.6); Potassium 3.8 mmol/L (3.4-4.6); Total Protein 5.1 gm/dL (6.2-8.2)
[2020-01-01] MEDS: MAGNESIUM OXIDE 400 MG TABLET PO SCH (09:35)
[2020-01-01] MEDS: GABAPENTIN 600 MG TABLET PO SCH ×2 (09:35→20:44)
[2020-01-01] MEDS: SERTRALINE HCL 100 MG TABLET PO SCH (09:35)
[2020-01-01] MEDS: CALCIUM CARBONATE/VITAMIN D3 1 TAB TABLET PO SCH ×2 (09:35→20:44)
[2020-01-01] MEDS: ATENOLOL 50 MG TABLET PO SCH (09:36)
[2020-01-01] MEDS: ACETAMINOPHEN 500 MG TABLET PO PRN ×2 (13:39→20:43)
[2020-01-01] MEDS: NORMAL SALINE 1,000 ML IV PRN ×2 (15:49→23:47)
[2020-01-01] MEDS ORDERED: WARFARIN SODIUM 3 MG TABLET PO SCH (17:00)
[2020-01-01] MEDS: WARFARIN SODIUM 6 MG TABLET PO SCH (18:05)
[2020-01-01] MEDS: SIMVASTATIN 10 MG TABLET PO SCH (20:44)
--- NOTE | 2020-01-01 22:22 | PN ---
Subjective - Date and Time Seen Date: 01/01/20 Time: 11:00 Subjective Narrative: Hypotensive overnight. Required IV fluid bolus, blood pressure medications held, and continued IV fluids. Luly was confused, but has improved with fluid. She was given tramadol last night and fentanyl by EMS. She reports right shoulder pain making it difficult to move her right arm. Right leg is also weak and painful, along with low back. Known radicular injury. Objective - Vitals Vitals: Last Vital Signs Temp 36.1 C 01/01/20 22:03 Pulse 68 01/01/20 22:03 Resp 18 01/01/20 22:03 BP 100/54 01/01/20 22:03 Pulse Ox 97 01/01/20 22:03 - Abnormal Lab Findings Abnormal Lab Findings: Abnormal Lab Results 12/31/19 01/01/20 01/01/20 Range/Units 15:35 09:10 09:10 WBC 12.2 H (4.0-10.5) K/mm3 RBC 2.96 L (4.2-5.4) M/mm3 Hgb 9.9 L (12.5-16.0) gm/dL Hct 30.3 L (37.0-47.0) % MCV 102.4 H (78-100) fl MCH 33.4 H (27-31) pg RDW 15.1 H (11.5-14.0) % Immature Gran % (Auto) 1.00 H (0.001-0.429) % Immature Gran # (Auto) 0.12 H (0.000-0.0310) K/mm3 Neutrophils % 77.6 H (42-75.0) % Lymphocytes % 8.4 L (20-51) % Monocytes % 11.7 H (0.0-9) % Neutrophils # 9.5 H (1.3-6.0) K/mm3 Lymphocytes # 1.03 L (1.5-3.5) k/mm3 Monocytes # 1.4 H (0.0-1.0) k/mm3 Chloride 107 H (97-106) mmol/L BUN 34 H (3-23) mg/dL Est GFR (Non-Af Amer) 40 L D (60-130) mL/min BUN/Creatinine Ratio 24.8 H (9.0-21.6) Random Glucose 173 H (70-110) mg/dL Lactic Acid, Venous (0.4-2.0) mmol/L Calcium 7.8 L (7.9-10.9) mg/dL ALT 18 L (19-67) U/L Creatine Kinase 286 H (0-259) U/L Total Protein 5.1 L (6.2-8.2) gm/dL Albumin 2.2 L (3.4-5.0) gm/dl 01/01/20 Range/Units 09:10 WBC (4.0-10.5) K/mm3 RBC (4.2-5.4) M/mm3 Hgb (12.5-16.0) gm/dL Hct (37.0-47.0) % MCV (78-100) fl MCH (27-31) pg RDW (11.5-14.0) % Immature Gran % (Auto) (0.001-0.429) % Immature Gran # (Auto) (0.000-0.0310) K/mm3 Neutrophils % (42-75.0) % Lymphocytes % (20-51) % Monocytes % (0.0-9) % Neutrophils # (1.3-6.0) K/mm3 Lymphocytes # (1.5-3.5) k/mm3 Monocytes # (0.0-1.0) k/mm3 Chloride (97-106) mmol/L BUN (3-23) mg/dL Est GFR (Non-Af Amer) (60-130) mL/min BUN/Creatinine Ratio (9.0-21.6) Random Glucose (70-110) mg/dL Lactic Acid, Venous 2.5 H* (0.4-2.0) mmol/L Calcium (7.9-10.9) mg/dL ALT (19-67) U/L Creatine Kinase (0-259) U/L Total Protein (6.2-8.2) gm/dL Albumin (3.4-5.0) gm/dl - Exam Constitutional: Present: Alert, Oriented x3, Cooperative ENT Exam: Present: hearing grossly normal Respiratory: Present: lungs clear, normal breath sounds, no respiratory distress Cardiovascular/Chest: Present: irregularly irregular Abdomen: Present: Normal bowel sounds, soft, nontender, nondistended Skin Exam: Present: normal color, warm/dry, no cyanosis Neurologic: Present: other - Bilateral hand overhead cleaner are 4/5 but equal. Right leg has heightened sensation but this was present on prior admission and likely secondary to radicular symptoms from anteriolisthesis Assessment/Plan Plan Narrative: Developed hypotension overnight. This may have been drug induced vs severe dehydration. Given 2 liter bolus of NS and will continue at 125ml/hr. Will hold hypertensive medications. Will admit to inpatient status due to hypotension. Will take >2 midnights to treat and monitor blood pressure. Will monitor for infectious cause, but I do not suspect infection at this time. Will get xray of right shoulder. There is no focal neurological abnormality. Creatinine is improved today with the fluids. Suspect dehydration secondary to weakness and poor oral intake and further evidence of need for additional help then what she can accomplish at home. She will need nursing facility. - Problems/Diagnosis (1) Severe dehydration Problem: Acute (2) Hypotension Problem: Acute (3) Right shoulder pain Problem: Acute (4) Acute renal failure Problem: Acute Qualifiers: Acute renal failure type: unspecified Qualified Code(s): N17.9 - Acute kidney failure, unspecified (5) Delirium, drug-induced Problem: Acute (6) Radicular pain of right lower extremity Problem: Acute (7) Anterolisthesis Problem: Acute (8) Atrial fibrillation/flutter Problem: Chronic
[2020-01-02] MEDS: ACETAMINOPHEN 500 MG TABLET PO PRN ×2 (05:57→15:14)
[2020-01-02 06:47] LABS: Hematocrit 31.2 % (37.0-47.0); Hemoglobin 10.1 gm/dL (12.5-16.0); Mean Cell Volume 102.6 fl (78-100); Mean Corpuscular Hemoglobin 33.2 pg (27-31); Mean Corpuscular Hgb Conc 32.4 g/dl (32-36); Mean Platelet Volume 10.4 fl (8-12.5); Neutrophil # 6.4 K/mm3 (1.3-6.0); Neutrophil % 70.8 % (42-75.0); Platelet Count 168 K/mm3 (150-450); Red Blood Count 3.04 M/mm3 (4.2-5.4); Red Cell Distribution Width 14.8 % (11.5-14.0)
[2020-01-02] MEDS: traMADol HCL 50 MG TABLET PO PRN ×3 (07:09→21:14)
[2020-01-02] MEDS: LEVOTHYROXINE SODIUM 100 MCG TABLET PO SCH (07:11)
[2020-01-02] MEDS: INSULIN LISPRO 100 UNITS/ML VIAL SC SCH ×3 (07:14→17:16)
[2020-01-02] MEDS: NORMAL SALINE 1,000 ML IV PRN (07:16)
[2020-01-02 07:18] LABS: Albumin * 2.1 gm/dl (3.4-5.0); Anion Gap 9.6 mmol/L (6.8-13.8); BUN/Creatinine Ratio 22.5 (9.0-21.6); Bilirubin, Total 0.7 mg/dL (0.0-1.1); Ca. Corrected For Albumin 9.2 mg/dL (8.4-10.2); Potassium 3.6 mmol/L (3.4-4.6); Total Protein 5.3 gm/dL (6.2-8.2)
[2020-01-02 08:17] LABS: Prothrombin Time (Patient) 16.8 Seconds (9.1-10.7)
[2020-01-02 08:40] LABS: INR 1.73 INR (0.92-1.08)
[2020-01-02] MEDS: GABAPENTIN 600 MG TABLET PO SCH ×3 (09:19→21:11)
[2020-01-02] MEDS: SERTRALINE HCL 100 MG TABLET PO SCH (09:19)
[2020-01-02] MEDS: MAGNESIUM OXIDE 400 MG TABLET PO SCH (09:19)
[2020-01-02] MEDS: CALCIUM CARBONATE/VITAMIN D3 1 TAB TABLET PO SCH ×2 (09:19→21:11)
[2020-01-02] MEDS: ATENOLOL 50 MG TABLET PO SCH (09:23)
[2020-01-02] MEDS: CYCLOBENZAPRINE HCL 10 MG TABLET PO SCH ×2 (12:13→19:32)
[2020-01-02] MEDS: WARFARIN SODIUM 6 MG TABLET PO SCH (17:17)
[2020-01-02] MEDS: SIMVASTATIN 10 MG TABLET PO SCH (21:11)
[2020-01-02] MEDS ORDERED: DOCUSATE SODIUM 100 MG CAPSULE PO PRN (22:21)
--- NOTE | 2020-01-02 23:00 | PN ---
Subjective - Date and Time Seen Date: 01/02/20 Time: 11:15 Subjective Narrative: Luly reports continued weakness and pain to right lower extremity and back. Her right shoulder is feeling better today. No fever, chills, nausea, or vomiting. Objective - Vitals Vitals: Last Vital Signs Temp 37 C 01/02/20 14:51 Pulse 70 01/02/20 17:20 Resp 14 01/02/20 14:51 BP 115/44 01/02/20 14:51 Pulse Ox 98 01/02/20 14:51 - Abnormal Lab Findings Abnormal Lab Findings: Abnormal Lab Results 01/02/20 01/02/20 01/02/20 Range/Units 06:40 06:40 08:03 RBC 3.04 L (4.2-5.4) M/mm3 Hgb 10.1 L (12.5-16.0) gm/dL Hct 31.2 L (37.0-47.0) % MCV 102.6 H (78-100) fl MCH 33.2 H (27-31) pg RDW 14.8 H (11.5-14.0) % Immature Gran % (Auto) 1.10 H (0.001-0.429) % Immature Gran # (Auto) 0.10 H (0.000-0.0310) K/mm3 Lymphocytes % 10.4 L (20-51) % Monocytes % 13.8 H (0.0-9) % Eosinophils % 3.7 H (0.0-3.0) % Neutrophils # 6.4 H (1.3-6.0) K/mm3 Lymphocytes # 0.93 L (1.5-3.5) k/mm3 Monocytes # 1.2 H (0.0-1.0) k/mm3 PT 16.8 H (9.1-10.7) Seconds INR (Anticoag Therapy) 1.73 H (0.92-1.08) INR Chloride 108 H (97-106) mmol/L Est GFR (Non-Af Amer) 56 L D (60-130) mL/min BUN/Creatinine Ratio 22.5 H (9.0-21.6) Random Glucose 130 H (70-110) mg/dL ALT 16 L (19-67) U/L Total Protein 5.3 L (6.2-8.2) gm/dL Albumin 2.1 L (3.4-5.0) gm/dl - Exam Constitutional: Present: Alert, Oriented x3, Cooperative ENT Exam: Present: hearing grossly normal Respiratory: Present: lungs clear, normal breath sounds, no respiratory distress Cardiovascular/Chest: Present: irregularly irregular Abdomen: Present: Normal bowel sounds, soft, nontender, nondistended Skin Exam: Present: normal color, warm/dry, no cyanosis Neurologic: Present: alert, normal mood/affect, oriented x 3 Appearance: Present: appropriate appearance, appropriate insight Eye contact: Present: cooperative, good eye contact, normal speech Thoughts: Present: normal thought pattern, no apparent hallucination Assessment/Plan Plan Narrative: Blood pressure and renal failure resolved today and back to baseline. She is still significantly weak and unable to safely discharge to home due to lumbar radiculopathy. Will increase gabapentin and schedule muscle relaxer due to reported leg spasms. Looking into SNF discharge. - Problems/Diagnosis (1) Severe dehydration Problem: Resolved (2) Hypotension Problem: Resolved (3) Right shoulder pain Problem: Acute (4) Acute renal failure Problem: Resolved Qualifiers: Acute renal failure type: unspecified Qualified Code(s): N17.9 - Acute kidney failure, unspecified (5) Delirium, drug-induced Problem: Resolved (6) Radicular pain of right lower extremity Problem: Acute (7) Anterolisthesis Problem: Acute (8) Atrial fibrillation/flutter Problem: Chronic
[2020-01-03 07:09] LABS: Prothrombin Time (Patient) 17.8 Seconds (9.1-10.7)
[2020-01-03] MEDS: INSULIN LISPRO 100 UNITS/ML VIAL SC SCH ×2 (07:15→11:54)
[2020-01-03] MEDS: CYCLOBENZAPRINE HCL 10 MG TABLET PO SCH ×2 (07:16→13:38)
[2020-01-03] MEDS: GABAPENTIN 600 MG TABLET PO SCH ×2 (07:16→13:38)
[2020-01-03] MEDS: LEVOTHYROXINE SODIUM 100 MCG TABLET PO SCH (07:16)
[2020-01-03 07:22] LABS: INR 1.84 INR (0.92-1.08)
[2020-01-03] MEDS: ACETAMINOPHEN 500 MG TABLET PO PRN (08:14)
[2020-01-03] MEDS: traMADol HCL 50 MG TABLET PO PRN (09:31)
[2020-01-03] MEDS: MAGNESIUM OXIDE 400 MG TABLET PO SCH (09:32)
[2020-01-03] MEDS: ATENOLOL 50 MG TABLET PO SCH (09:32)
[2020-01-03] MEDS: SERTRALINE HCL 100 MG TABLET PO SCH (09:32)
[2020-01-03] MEDS: CALCIUM CARBONATE/VITAMIN D3 1 TAB TABLET PO SCH (09:32)
[2020-01-03 12:33] VITALS: BP 104/71
--- NOTE | 2020-01-03 12:36 | DS ---
(1) Severe dehydration Problem: Resolved (2) Hypotension Problem: Resolved (3) Right shoulder pain Problem: Acute (4) Acute renal failure Problem: Resolved Qualifiers: Acute renal failure type: unspecified Qualified Code(s): N17.9 - Acute kidney failure, unspecified (5) Delirium, drug-induced Problem: Resolved (6) Radicular pain of right lower extremity Problem: Acute (7) Anterolisthesis Problem: Acute (8) Atrial fibrillation/flutter Problem: Chronic Date of Discharge:: 01/03/20 Hospital Course: Luly is a 79 yo female with right radicular pain and weakness secondary to degenerative disc disease and anteriolisthesis of L5S1. She was recently given SUSANA and felt improved. However at home she continued to have weakness and multiple falls. She called EMS on multiple occasions to help her back up. On the last fall she was brought to the ER because of significant pain. She was given fentanyl on transport and had delirium. She was found to have acute renal failure, severe dehydration with hypotension, and hypernatremia. She was treated with IV fluids and improved. She is back to her baseline, other than her lower extremity weakness. She is unsafe to go home due to her weakness and falls. She will be discharge to [facility] in [facility] with therapies. Procedures Performed: none Results and Findings: Lab Pending Results 12/31/19 15:35: Creatine Kinase 286 H 12/31/19 15:36: Lactic Acid, Venous 2.5 H* 12/31/19 15:36: WBC 13.7 H, RBC 3.47 L, Hgb 11.7 L, Hct 35.3 L, MCV 101.7 H, MCH 33.7 H, MCHC 33.1, RDW 15.0 H, Plt Count 229, MPV 10.2, Immature Gran % (Auto) 1.50 H, Immature Gran # (Auto) 0.21 H, Neutrophils % 78.6 H, Lymphocytes % 7.9 L, Monocytes % 11.1 H, Eosinophils % 0.8, Basophils % 0.1, Nucleated RBC % 0.0, Neutrophils # 10.7 H, Lymphocytes # 1.08 L, Monocytes # 1.5 H, Eosinophils # 0.1, Absolute Basophils 0.0 12/31/19 15:36: Sodium 142, Plasma Sodium 143 H, Potassium 3.8, Chloride 105, Carbon Dioxide 25.0, Anion Gap 15.8 H, BUN 45 H D, Creatinine 1.75 H D, Est GFR (Non-Af Amer) 30 L D, BUN/Creatinine Ratio 25.7 H, Random Glucose 145 H, Calcium 8.8, Calcium Adj for Albumin 9.3, Total Bilirubin 0.8, AST 25, ALT 29, Alkaline Phosphatase 73, Troponin I Less than 0.017, B-Natriuretic Peptide 2171 H, Total Protein 6.2, Albumin 3.0 L, TSH 3.118 12/31/19 15:36: PT 13.1 H, INR (Anticoag Therapy) 1.34 H, PTT (Buffy) 27.3 12/31/19 16:36: Urine Color Yellow, Urine Appearance Clear, Urine pH 5.5, Ur Specific Singer 1.005, Urine Protein Negative, Urine Glucose (UA) Negative, Urine Ketones Negative, Urine Blood Negative, Urine Nitrate Negative, Urine Bilirubin Negative, Urine Urobilinogen Normal, Ur Leukocyte Esterase Negative, Urine RBC None seen, Urine WBC None seen, Ur Epithelial Cells None seen, Urine Bacteria None seen, Urine Culture Comments No culture indicated 12/31/19 18:18: Lactic Acid, Venous 1.9 01/01/20 09:10: WBC 12.2 H, RBC 2.96 L, Hgb 9.9 L, Hct 30.3 L, MCV 102.4 H, MCH 33.4 H, MCHC 32.7, RDW 15.1 H, Plt Count 163, MPV 10.7, Immature Gran % (Auto) 1.00 H, Immature Gran # (Auto) 0.12 H, Neutrophils % 77.6 H, Lymphocytes % 8.4 L, Monocytes % 11.7 H, Eosinophils % 1.1, Basophils % 0.2, Nucleated RBC % 0.0, Neutrophils # 9.5 H, Lymphocytes # 1.03 L, Monocytes # 1.4 H, Eosinophils # 0.1, Absolute Basophils 0.0 01/01/20 09:10: Sodium 141, Plasma Sodium 142, Potassium 3.8, Chloride 107 H, Carbon Dioxide 24.2, Anion Gap 13.6, BUN 34 H, Creatinine 1.37, Est GFR (Non-Af Amer) 40 L D, BUN/Creatinine Ratio 24.8 H, Random Glucose 173 H, Calcium 7.8 L, Calcium Adj for Albumin 8.9, Total Bilirubin 0.8, AST 20, ALT 18 L, Alkaline Phosphatase 57, Total Protein 5.1 L, Albumin 2.2 L 01/01/20 09:10: Lactic Acid, Venous 2.5 H* 01/01/20 10:20: SARS-CoV-2 (PCR) Not detected 01/02/20 06:40: WBC 9.0 D, RBC 3.04 L, Hgb 10.1 L, Hct 31.2 L, MCV 102.6 H, MCH 33.2 H, MCHC 32.4, RDW 14.8 H, Plt Count 168, MPV 10.4, Immature Gran % (Auto) 1.10 H, Immature Gran # (Auto) 0.10 H, Neutrophils % 70.8, Lymphocytes % 10.4 L, Monocytes % 13.8 H, Eosinophils % 3.7 H, Basophils % 0.2, Nucleated RBC % 0.0, Neutrophils # 6.4 H, Lymphocytes # 0.93 L, Monocytes # 1.2 H, Eosinophils # 0.3, Absolute Basophils 0.0 01/02/20 06:40: Sodium 141, Plasma Sodium 141, Potassium 3.6, Chloride 108 H, Carbon Dioxide 27.0, Anion Gap 9.6, BUN 23, Creatinine 1.02, Est GFR (Non-Af Amer) 56 L D, BUN/Creatinine Ratio 22.5 H, Random Glucose 130 H, Calcium 8.0, Calcium Adj for Albumin 9.2, Total Bilirubin 0.7, AST 17, ALT 16 L, Alkaline Phosphatase 70, Total Protein 5.3 L, Albumin 2.1 L 01/02/20 08:03: PT 16.8 H, INR (Anticoag Therapy) 1.73 H 01/03/20 06:59: PT 17.8 H, INR (Anticoag Therapy) 1.84 H Discharge Location: [facility] Disposition: Intermediate Care Facility ICF Condition: Stable Level of Care: ICF Discharge Activity: Activity as tolerated Discharge Diet: General/regular food Shelter Therapy: Physical Therapy, Occupation Therapy Referrals: Janis Mccall, [facility]PER [Primary Care Provider] - Problem Oriented Discharge Instructions to Patient/Family: Radicular Pain, Acute Kidney Injury, Adult Additional Patient Instructions (free text): [facility] ICF- PT/OT to eval and treat under Part B. Prescriptions (Any new or edited meds): Docusate Sodium [Colace] 100 mg PO DAILY PRN #30 cap PRN Reason: Constipation Transmission Status: Pending to [facility] Cyclobenzaprine HCl [Flexeril] 10 mg PO TID@0700,1300,1900 PRN #90 tab PRN Reason: muscle spasm Transmission Status: Pending to [facility] Gabapentin [Neurontin] 600 mg PO TID@0700,1400,2100 #90 tab Transmission Status: Pending to [facility] traMADol HCL [Ultram] 50 mg PO Q6H PRN #60 tab PRN Reason: pain Transmission Status: Sent to [facility] Complete Home Medications List: Complete Home Medication List: Simvastatin [Zocor] 10 mg PO HS #0 04/24/14 metFORMIN HCL [Glucophage] 850 mg PO TID #0 04/24/14 Vitamin E Acetate [Vitamin E] 450 unit PO TID 02/19/17 gabapentin 300 mg capsule 600 mg PO BID cap 04/30/18 warfarin 2 mg tablet 6 mg PO QDIPM 04/30/18 Calcium Carbonate/Vitamin D3 [Calcarb 600 With Vitamin D] 1 tab PO BID 06/09/19 Levothyroxine Sodium [Levo-T] 200 mcg PO DAILY 06/09/19 Magnesium Oxide [Mag-Ox 400] 400 mg PO DAILY 06/09/19 Sertraline HCl [Zoloft] 100 mg PO DAILY 06/09/19 Alendronate Sodium 70 mg PO Q7D 12/24/19 Atenolol [Tenormin] 50 mg PO DAILY 12/24/19 Cinnamon Bark [Cinnamon] 1,000 mg PO BID 12/24/19 Raine Root 550 mg PO DAILY 12/24/19 Losartan/Hydrochlorothiazide [Losartan-Hctz 100-12.5 mg Tab] 1 ea PO DAILY 12/24/19 Zinc 50 mg PO DAILY 12/24/19 Acetaminophen [Tylenol] 1,000 mg PO Q6H PRN tab 12/28/19 Atenolol [Tenormin] 50 mg PO DAILY tab 12/28/19 Pantoprazole Sodium [Protonix] 40 mg PO DAILY #30 tab 12/28/19 Acetaminophen [Tylenol] 1,000 mg PO Q6H PRN tablet 01/03/20 Cyclobenzaprine HCl [Flexeril] 10 mg PO TID@0700,1300,1900 PRN #90 tab 01/03/20 Docusate Sodium [Colace] 100 mg PO DAILY PRN #30 cap 01/03/20 Gabapentin [Neurontin] 600 mg PO TID@0700,1400,2100 #90 tab 01/03/20 traMADol HCL [Ultram] 50 mg PO Q6H PRN #60 tab 01/03/20 Forms: Patient Portal Registration
[2020-01-03] MEDS ORDERED: WARFARIN SODIUM 3 MG TABLET PO SCH (17:00)
== END 2020-01-03 15:10 ==
LOC: MS 15:09 → ER 15:09 → INTOOBSV 18:08 → MS 18:30
PROVIDERS: ADMIT Family Medicine; ATTEND Family Medicine
DX: Z79.01 Long term (current) use of anticoagulants; M54.17 Radiculopathy, lumbosacral region; I48.20 Chronic atrial fibrillation, unspecified; M43.17 Spondylolisthesis, lumbosacral region; E86.0 Dehydration; F05 Delirium due to known physiological condition; M25.511 Pain in right shoulder; N17.9 Acute kidney failure, unspecified; I48.92 Unspecified atrial flutter; I95.9 Hypotension, unspecified
CPT/HCPCS: 36415; 71010; 71045; 73030; 80053; 81001; 82550; 83519; 83605; 83880; 84443; 84484; 85025; 85610; 85730; 93005; 96361; 96374; 97116; 97140; 97161; 97530; 99285; U0001